=== PATIENT | male | born 1965 | race Caucasian/White ===

== ENCOUNTER 2018-11-30 04:01 | Emergency (ER) | payer OTHER, SELFPAY ==
[2018-11-30 04:03] VITALS: BP 158/109; PULSE 74; RESP 20; TEMP 36.7; O2SAT 96
[2018-11-30] MEDS: Tetracaine 0.5% 4 ML BTL (04:12)
[2018-11-30] MEDS: Fluorescein STRIPS 100/BOX 1 MG (04:12)
--- NOTE | 2018-11-30 04:14 | W.ED.GENAD ---
Discharge Plan Disposition Patient Disposition: HOME Condition: Good Discharge Details Chief Complaint: EyeProblem Clinical Impression: Abrasion, corneal Primary Care Provider: Afshan Roman ED Provider: Burt Apodaca Home Meds and New Rx's Prescriptions: No Action omeprazole 20 MG capsule,delayed release(DR/EC) 20 mg PO DAILY RF: 0 albuterol sulfate [ProAir HFA] 8.5 GM HFA aerosol inhaler 2 puff Inhalation Q4H PRN 30 Days Qty: 2 RF: 11 Discharge Instructions Instructions: Corneal Abrasion (ED) Additional Instructions: Please apply a thin ribbon of the erythromycin ointment to the affected eye 3 times daily. Please follow-up closely at the [facility] if your symptoms persist past 48 hours. If you notice any worsening of your symptoms, or any new symptoms such as vomiting, diarrhea, fever, chills, shortness of breath, chest pain, numbness, weakness, or fainting , please return immediately to the emergency department for reevaluation. Please follow up with your primary care provider as soon as possible for reassessment and reevaluation. As always, it was a pleasure participating in your medical care today. [address] , [place], [place] [id number] Stand Alone Forms: Work Release Referrals: [facility] [OTHER] - Medical Decision Making This is a pleasant 53-year-old male who presents for foreign body sensation in his left eye. 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 He is noticed a continued grittiness in his eyes since then. He does not wear contact lenses. Exam demonstrates a small wood particle noted beneath the upper lid which was removed easily. Small corneal abrasion is also noted over the 1 o'clock position of the eye. No other significant abnormalities on exam. Erythromycin ointment was given. We discussed the importance of close follow-up with the inspector weights and measures. We discussed red flags which to return. I have extensively reviewed the treatment plan and discharge instructions with the patient. I have addressed all patient concerns at this time. The patient was made aware of what symptoms to monitor for that would warrant a return to the emergency department. Discussed the plan with the patient, they demonstrate verbal understanding and agreement with our assessment and plan at this time. HPI General Date/Time Provider Initiated Documentation: 11/30/18 04:04. HPI Narrative: This is a pleasant 53-year-old male with no significant past medical history who presents today for evaluation of irritation in his left eye. 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 Last evening he noticed some irritation and a gritty-like sensation in his left eye. He washed out with copious amounts of water and in the shower however his symptoms persist. He does admit to watering of his eye but denies any blurry vision or headache. He does not wear contact lenses. He denies any recent metalworking, or chips of metal. He has no other complaints at this time. Related Data Home Medications Medication Instructions Recorded Confirmed omeprazole 20 mg PO DAILY tab-cap 09/16/12 11/30/18 albuterol sulfate [Proair Hfa] 2 puff INHALATION Q4H PRN 30 Days 06/22/17 11/30/18 #2 inhaler Previous Rx's Medication Instructions Recorded albuterol sulfate [Proair Hfa] 2 puff INHALATION Q4H PRN 30 Days 06/22/17 #2 inhaler Allergies Allergy/AdvReac Type Severity Reaction Status Date / Time prochlorperazine edisylate AdvReac Severe anxiety Unverified 11/30/18 04:07 [From Compazine] prochlorperazine maleate AdvReac Severe anxiety Unverified 11/30/18 04:07 [From Compazine] General Stated Complaint: EyeProblem DANIELA: 5 Review of Systems Review of Systems All systems reviewed & are unremarkable except as noted in HPI and below PFSH Family History Mother Depression Heart disease Neoplasm Asthma Father Diabetes Stroke Sister Depression Sister No problems noted. Brother No problems noted. Grandfather No problems noted. Grandfather No problems noted. Grandmother Heart disease Grandmother Kidney disease Social History Smoking/Tobacco Use Status: Never Alcohol Intake: never Drug use: Never Substance use type: does not use Do you feel safe in your relationship?: Yes Exam Narrative Exam Narrative: 1.Const: Well-nourished, Well-developed, appearing stated age 2.Eyes: Left eye: EOMI, PERRL, Peripheral vision intact. No nystagmus. No external signs of preseptal cellulitis, no redness around the eye, no proptosis. No hyphema, no signs of trauma around the eye, no periorbital emphysema. Fluorescein exam is positive for corneal abrasion at the 1:00 position, negative Quinton sign. Visual acuity as documented in chart. Eversion of the upper lid demonstrates evidence of a small particle noted on the lid. This was removed with a Q-tip. No evidence of foreign body in the lower lid. 3.ENT: Atraumatic external nose and ears. Moist MM. Neck: Symmetric, trachea midline, No thyromegaly. 4.CVS: +S1/S2, No murmurs or gallops. Peripheral pulses 2+ and equal in all extremities. Brisk capillary refill in all extremities. 5.RESP: Unlabored respiratory effort. Clear to auscultation bilaterally. No wheezes rales or rhonchi 6.GI: Soft, Nontender/Nondistended, No hepatosplenomegaly. No guarding or rebound. 7.MSK: Normocephalic/Atraumatic, Extremities w/o deformity or ttp No cyanosis or clubbing, Normal movement of all extremities 8.Skin: Warm, Dry. No rashes or lesions. 9.Neuro: agricultural adviser II-XII grossly intact. Sensation grossly intact, no focal neurologic deficits. 10.Psych: (AAO) x3. Appropriate mood and affect Course Vital Signs Temperature 36.7 C 11/30/18 04:03 Pulse 74 11/30/18 04:03 Respiratory Rate 20 11/30/18 04:03 Blood Pressure 158/109 H 11/30/18 04:03 Pulse Oximetry 96 11/30/18 04:03 Temperature 36.7 C 11/30/18 04:03 Temperature Source Skin 11/30/18 04:03 Pulse 74 11/30/18 04:03 Respiratory Rate 20 11/30/18 04:03 Respiratory Effort Non-Labored 11/30/18 04:07 Blood Pressure 158/109 H 11/30/18 04:03 Blood Pressure Position Sitting 11/30/18 04:03 Pulse Oximetry 96 11/30/18 04:03 Oxygen Delivery Method Room Air 11/30/18 04:03 Oxygen Flow Rate 0 11/30/18 04:03 Pain Level 5 11/30/18 04:03
[2018-11-30] MEDS: Erythromycin Ophth Oint 3.5 GM TUBE OS (04:17)
== END 2018-11-30 04:20 | disposition home or self-care (01) ==
LOC: ER 04:36
PROVIDERS: Emergency Provider Student in an Organized Health Care Education/Training Program
DX: S05.02XA Injury of conjunctiva and corneal abrasion without foreign body, left eye, initial encounter (principal); T15.92XA Foreign body on external eye, part unspecified, left eye, initial encounter; Y99.0 Civilian activity done for income or pay
CPT/HCPCS: 99283

== ENCOUNTER 2019-09-06 09:19 | Emergency (ER) | payer OTHER, SELFPAY ==
--- NOTE | 2019-09-06 09:23 | ED.GENADUL_ITS ---
Discharge Plan Disposition Patient Disposition: HOME Condition: Improving Discharge Details Chief Complaint: Nausea/Vomit/Diar Clinical Impression: Abdominal pain, vomiting, and diarrhea, Cough Primary Care Provider: Kg Mercado ED Provider: Marisela Phoenix Home Meds and New Rx's Prescriptions: New dicyclomine 20 mg tablet 20 mg PO TID PRN (Reason: abdominal pain) Qty: 10 RF: 0 ondansetron 4 mg tablet,disintegrating 4 mg PO TID PRN (Reason: nausea and vomiting) Qty: 6 RF: 0 Continued omeprazole 20 MG capsule,delayed release(DR/EC) 20 mg PO DAILY RF: 0 albuterol sulfate [ProAir HFA] 8.5 GM HFA aerosol inhaler 2 puff Inhalation Q4H PRN 30 Days Qty: 2 RF: 11 Discharge Instructions Instructions: Acute Nausea and Vomiting (ED), Acute Diarrhea (ED), Acute Cough (ED) Additional Instructions: Take Zofran as needed and directed for nausea and vomiting. Take the Bentyl as needed and directed for abdominal pain and cramping. Drink plenty of fluids and get plenty of rest. Follow a diet of bananas, rice, applesauce, toast, crackers or pretzels over the next few days while diarrhea present. You can advance your diet to regular foods once your bowel movements become more formed. You will be notified of the result of your COVID-19 test drawn today once it is available. Follow-up with your primary care doctor in 1 week. Return to the emergency department with any worsening or new concerning symptoms of fever, persistent vomiting, or worsening abdominal pain. Stand Alone Forms: PENDING COVID-19 TESTING, Work Release Discharge Data Discharge Physician: Marisela Phoenix Medical Decision Making [phone] -- 54-year-old male with history of asthma and GERD presents with cough, vomiting and diarrhea for the past week. BP hypertensive. Afebrile. He appears nontoxic. No focal deficits. His abdomen is soft and diffusely mildly tender. Normal ENT exam. Lungs clear. Suspect most likely GI illness. Differential could also include coronavirus. Do not suspect pneumonia as patient has no complaint of shortness of breath with normal respiratory rate and oxygen saturation. Do not suspect acute abdomen. As pt has headache in setting of vomiting, diarrhea, and mildly tender abdomen, would recommend an IV, IV fluids, meds and labs for further evaluation and treatment. Patient initially hesitant to IV. He is refusing a chest x-ray. He states he is mainly concerned about cost. He also states he would like a work note for the next few days as he has been out for the last week and still does not feel better. He is now agreeable to IV. Will reassess. COVID swab ordered due to GI symptoms in setting of cough and feeling feverish. His headache I suspect is likely due to dehydration as he has no focal deficits. 1145 -- labs reviewed unremarkable. Normal white blood cell count, electrolytes. Patient reassessed -he feels better. Reassessment of abdomen notes it to be soft with very minimal tenderness across lower abdomen. Discussed with patient that we could consider a CT abdomen but he would rather hold on this at this time as he feels better and will plan to return if symptoms worsen. BP still elevated upon discharge, 160/105. He has no complaint of chest pain or headache at this time. He has no focal deficits. He states he has taken lisinopril for hypertension in the past. He is advised to limit sodium intake and follow-up with his PCP regarding his high blood pressure and whether to restart antihypertensives. We will send home with a prescription for Bentyl and Zofran. Encouraged to inc rease fluids. Insert return precautions Medical Records Medical records reviewed: Yes I reviewed the patient's medical records. Lab Data Lab results reviewed: Yes I reviewed the patient's lab results. Labs: Laboratory Tests Range/Units 09/06/19 09/06/19 10:10 10:10 WBC (4.4-10.8) k/cumm 5.95 RBC (4.50-6.00) m/cumm 5.02 Hgb (13.5-17.5) g/dL 16.3 Hct (40.0-50.0) % 45.6 MCV (80-95) fL 90.8 MCH (27.0-33.0) pg 32.5 MCHC (32.0-36.0) g/dL 35.7 RDW (11.8-14.1) % 13.6 Plt Count (130-400) x1000/uL 259 MPV (8.0-11.0) fL 9.1 Immature Gran % % 0.3 Neutrophils % 72.2 Lymphocytes % 18.5 Monocytes % 7.2 Eosinophils % 1.3 Basophils % 0.5 Absolute Neutrophils (1.2-6.7) k/cumm 4.29 Absolute Lymphocytes (1.2-3.4) k/cumm 1.10 L Absolute Monocytes (0.11-0.7) k/cumm 0.43 Absolute Eosinophils (0.0-0.7) k/cumm 0.08 Absolute Basophils (0.0-0.2) k/cumm 0.03 Sodium (136-145) mmol/L 137 Potassium (3.5-5.1) mmol/L 3.9 Chloride (98-107) mmol/L 103 Carbon Dioxide (21.0-32.0) mmol/L 27.9 Anion Gap (3-11) mmol/L 6.1 BUN (7-18) mg/dL 23 H Creatinine (0.70-1.30) mg/dL 0.92 Estimated GFR/1.73 m2 (mL/min/1.73m2) >= 60.00 Glucose (74-106) mg/dL 116 H Calcium (8.5-10.1) mg/dL 8.5 Total Bilirubin (0.2-1.0) mg/dL 0.4 AST (15-37) U/L 32 ALT (16-63) U/L 43 Alkaline Phosphatase (46-116) U/L 45 L Total Protein (6.4-8.2) g/dL 7.1 Albumin (3.4-5.0) g/dL 3.6 Lipase (73-393) U/L 89 HPI General Mode of arrival: ambulatory . Date/Time Provider Initiated Documentation: 09/06/19 09:22 . Limitations to Documentation: no limitations . Information obtained by: patient . HPI Narrative: Patient is a 54-year-old male with a history of asthma and GERD who presents for cough, vomiting and diarrhea for the past week. Patient was sent home from work early last week for vomiting. He states his symptoms started with vomiting which has occurred 1-2 times daily and mainly bile in color. He states shortly after that he started with watery brown diarrhea which has been occurring up to 2 times daily for the past week. He also admits to intermittent crampy abdominal pain which improves after diarrhea and then returns. He states the abdominal pain is currently 4/10. He does also admit to onset of a headache that is located behind both eyes and the top of his head since the vomiting and diarrhea. He states the headache is currently 6/10. He states he has had hot and cold chills but denies any known fever. He states his cough is been occasionally productive of white sputum but he denies any chest pain, shortness of breath, runny nose or sore throat or urinary symptoms. He denies any recent travel, recent antibiotics, recent known sick contacts with coronavirus or any recent Covid 19 testing. Related Data Home Medications Medication Instructions Recorded Confirmed omeprazole 20 mg PO DAILY tab-cap 09/16/12 09/06/19 albuterol sulfate [ProAir HFA] 2 puff INHALATION Q4H PRN 30 Days 06/22/17 09/06/19 #2 inhaler dicyclomine 20 mg PO TID PRN #10 tab 09/06/19 ondansetron 4 mg PO TID PRN #6 tab 09/06/19 Previous Rx's Medication Instructions Recorded albuterol sulfate [ProAir HFA] 2 puff INHALATION Q4H PRN 30 Days 06/22/17 #2 inhaler dicyclomine 20 mg PO TID PRN #10 tab 09/06/19 ondansetron 4 mg PO TID PRN #6 tab 09/06/19 Allergies Allergy/AdvReac Type Severity Reaction Status Date / Time prochlorperazine edisylate AdvReac Severe anxiety Unverified 09/06/19 09:32 [From Compazine] prochlorperazine maleate AdvReac Severe anxiety Unverified 09/06/19 09:32 [From Compazine] General DANIELA: 5 Review of Systems All systems reviewed & are unremarkable except as noted in HPI and below Constitutional Constitutional: Reports as per HPI, Denies fever(s), Reports headache(s), Reports poor appetite and Reports other (hot and cold chills at times) Eyes Eyes: Denies blurry vision ENT Ears, Nose, Mouth, and Throat: Denies dizziness, Reports headache(s), Denies sore throat and Denies throat swelling Cardiovascular Cardiovascular: Denies chest pain and Denies dyspnea Respiratory Respiratory: Reports cough and Denies dyspnea Gastrointestinal Gastrointestinal: Reports abdominal pain, Reports diarrhea and Reports vomiting Genitourinary Genitourinary: Denies hematuria and Denies dysuria Musculoskeletal Musculoskeletal: Denies back pain and Denies numbness Integumentary/Breasts Skin/Breast: Denies lesions and Denies rash Neurologic Neurologic: Denies dizziness, Reports headache(s), Denies localized weakness and Denies numbness Allergic/Immunologic Allergic/Immunologic: Denies throat swelling [facility] Medical History (Updated 09/06/19 @ 11:53 by Marisela Phoenix DO) Asthma (Inactive 09/16/12) GERD (gastroesophageal reflux disease) (Chronic) Hyperlipidemia (Inactive 04/21/11) Surgical History (Updated 09/06/19 @ 10:05 by Marisela Phoenix DO) History of ankle surgery (Acute) Family History Mother Depression Heart disease Neoplasm LUNG Asthma Father Diabetes Stroke Sister Depression Sister No problems noted. Brother No problems noted. Grandfather No problems noted. Grandfather No problems noted. Grandmother Heart disease Grandmother Kidney disease Social History Smoking/Tobacco Use Status: Never Alcohol Intake: current Alcohol Intake frequency: holidays/special occasions only Drug use: Never Substance use type: does not use Do you feel safe at home: Yes Do you feel safe in your relationship?: Yes Exam Const General: cooperative, healthy appearing and no acute distress HENMT Head: normal to inspection Ears: hearing grossly normal bilaterally, external ears normal and TM's normal bilaterally General nose exam: external nose normal Face and sinus: normal facial exam Mouth: oral mucosae normal Throat: posterior oropharynx normal Eyes General: appearance normal, both eyes and all related structures EOM: EOM intact bilaterally Neck Neck: normal visual inspection and No submandibular swelling Lymphatic: no lymphadenopathy noted Chest Chest: normal inspection of the chest and no tenderness Resp Effort & Inspection: normal respiratory effort and able to speak in complete sentences Auscultation: clear to auscultation bilaterally Cardio Rate: regular rate Rhythm: regular rhythm GI Inspection: obesity Palpation: soft, not firm, not rigid and tender (mild diffuse) Auscultation: normal bowel sounds Skin General skin exam: no rashes or lesions noted Neuro General: patient alert, patient awake and patient oriented x3 Cranial Nerves: CN's II-XI intact bilaterally Cognition: normal cognition Speech: speech normal Motor: muscle tone normal throughout and strength 5/5 throughout Sensory Exam: no sensory deficits noted Extrem General: normal to inspection, full ROM, capillary refill normal, no calf tenderness bilaterally and no edema Psych Appearance: grossly normal Mental Status: mental status grossly normal Speech and Movement: speech and movement normal Affect: normal affect
[2019-09-06 09:26] VITALS: BP 165/103; PULSE 80; RESP 16; TEMP 36.6; O2SAT 95
[2019-09-06] MEDS: Normal Saline Flush 10 ML SYR IVP (10:00)
[2019-09-06] MEDS: Ondansetron 4 MG/2 ML VIAL IVP (10:05)
[2019-09-06] MEDS: Normal Saline 1,000 ML 1000 ML IV ×2 (10:05→11:10)
[2019-09-06] MEDS: Ketorolac 30 MG/ML VIAL IVP (10:10)
[2019-09-06 10:29] LABS: Abs Immature Grans 0.02 k/cumm (0.0-0.09); Absolute Basophil Count 0.03 k/cumm (0.0-0.2); Absolute Eosinophil Count 0.08 k/cumm (0.0-0.7); Absolute Monocyte Count 0.43 k/cumm (0.11-0.7); Absolute Neutrophil Count 4.29 k/cumm (1.2-6.7); Basophils % 0.5; Eosinophils % 1.3; HCT 45.6 % (40.0-50.0); HGB 16.3 g/dL (13.5-17.5); Immature Grans % 0.3 %; Lymphocytes % 18.5; Mean Corp. HGB Concentration 35.7 g/dL (32.0-36.0); Mean Corpuscular Hemoglobin 32.5 pg (27.0-33.0); Mean Corpuscular Volume 90.8 fL (80-95); Mean Platelet Volume 9.1 fL (8.0-11.0); Monocytes % 7.2; Neutrophils % 72.2; Platelet Count 259 x1000/uL (130-400); RBC 5.02 m/cumm (4.50-6.00); RBC Distribution Width 13.6 % (11.8-14.1); White Blood Cell Count 5.95 k/cumm (4.4-10.8)
[2019-09-06 10:38] LABS: ALT 43 U/L (16-63); AST 32 U/L (15-37); Albumin 3.6 g/dL (3.4-5.0); Alkaline Phosphatase 45 U/L (46-116); Anion Gap 6.1 mmol/L (3-11); BUN 23 mg/dL (7-18); Bilirubin, Total 0.4 mg/dL (0.2-1.0); CO2 27.9 mmol/L (21.0-32.0); CREATININE 0.92 mg/dL (0.70-1.30); Calcium 8.5 mg/dL (8.5-10.1); Chloride 103 mmol/L (98-107); Glucose 116 mg/dL (74-106); Lipase 89 U/L (73-393); Potassium 3.9 mmol/L (3.5-5.1); Sodium 137 mmol/L (136-145); Total Protein 7.1 g/dL (6.4-8.2)
[2019-09-06 12:10] VITALS: BP 160/105; PULSE 67; RESP 16; TEMP 36.6; O2SAT 98
--- NOTE | 2019-09-07 13:33 | NUR.NOTE ---
patient and RN Jame spoke, patient wanted COvid-19 results. results are still pending and patient aware. Nursing Note:
[2019-09-07 21:04] LABS: COVID-19 RT-PCR UVMMC Result Negative (Negative)
== END 2019-09-06 12:21 | disposition home or self-care (01) ==
PROVIDERS: Emergency Provider Physician Assistant; PCP Family Medicine
DX: R11.2 Nausea with vomiting, unspecified (principal); R19.7 Diarrhea, unspecified; R10.30 Lower abdominal pain, unspecified; R05 Cough; E60 Dietary zinc deficiency; I10 Essential (primary) hypertension
CPT/HCPCS: 36415; 80053; 83690; 96361; 96374; 96375; 99284; U0003; 85025; J1885; J2405

== ENCOUNTER 2019-11-14 01:51 | Outpatient (CLI) | payer OTHER, SELFPAY ==
[2019-11-14 08:09] LABS: Hemoglobin A1C 5.8 % (3.8-5.6)
[2019-11-14 08:36] LABS: Anion Gap 10.9 mmol/L (3-11); BUN 31 mg/dL (7-18); CO2 26.1 mmol/L (21.0-32.0); CREATININE 0.97 mg/dL (0.70-1.30); Calcium 8.8 mg/dL (8.5-10.1); Calculated LDL 116 mg/dL (<100); Chloride 104 mmol/L (98-107); Cholesterol 196 mg/dL (<200); Glucose 121 mg/dL (74-106); HDL Cholesterol 37 mg/dL (40-60); Potassium 3.9 mmol/L (3.5-5.1); Sodium 141 mmol/L (136-145); Triglyceride 215 mg/dL (<150)
== END 2019-11-14 02:11 ==
PROVIDERS: PCP Family Medicine; Visit Provider Family Medicine
DX: I10 Essential (primary) hypertension (principal)
CPT/HCPCS: 36415; 80048; 80061; 83036

== ENCOUNTER 2019-12-25 13:51 | Emergency (ER) | payer OTHER, SELFPAY ==
--- NOTE | 2019-12-25 13:45 | RT.EKG_ITS ---
APPROVED REPORT Exam: Resting ECG Patient Location: E HR:79 bpm ECG Measurements Heart Rate 79 AXIS SC 157 P 22 QRSd 91 QRS 22 QT 374 T 6 QTc 430 Conclusion EKG 14.02 Rate 79, intervals normal, sinus rhythm, no significant ST elevations or depressions, there is a Q wa ve and inverted T wave in lead III, this is unchanged from 12/23/2004
--- NOTE | 2019-12-25 13:53 | W.ED.GENAD ---
Discharge Plan Disposition Patient Disposition: HOME Condition: Stable Discharge Details Clinical Impression: Fatigue, Tingling in extremities Primary Care Provider: Shelton Salinas ED Provider: Caren Ontiveros Home Meds and New Rx's Prescriptions: Continued chlorthalidone 25 mg tablet 25 mg PO DAILY Qty: 90 RF: 3 celecoxib 200 mg capsule 200 mg PO BID Qty: 60 RF: 2 albuterol sulfate [ProAir HFA] 90 mcg/actuation HFA aerosol inhaler 2 puff Inhalation Q4H PRN 30 Days Qty: 2 RF: 11 valsartan 160 mg tablet 160 mg PO DAILY Qty: 90 RF: 3 omeprazole 20 MG capsule,delayed release(DR/EC) 20 mg PO DAILY RF: 0 Discharge Instructions Instructions: Fatigue (ED) Additional Instructions: Continue to encourage water intake. Please take your medications as prescribed. Your potassium slightly low but this was replaced today. Your EKG and laboratory work-up are otherwise unremarkable. I would like for you to follow-up with your primary care in the next 1 to 2 weeks for reevaluation. If you develop chest pain, shortness of breath, increased weakness, headache, visual change or other new/worsening symptoms please seek care urgently once again Referrals: Shelton Salinas [Primary Care Provider] - Discharge Data Discharge Date/Time-TO BE ENTERED AT DEPARTURE: 12/25/19 16:04 Medical Decision Making Patient is a pleasant 54 year old male presenting for evaluation of fatigue that began yesterday. He has had a very busy, stressful week with lots of physical exertion.States that yesterday he had 20 mins of BUE tingling after taking his medications on an empty stomach which is unusual for him. states that he has felt poorly historically when he has taken his meds on an empty stomach. He states that he has not had recurrence of this. He comes in today as his was concerned for AMI with his fatigue. He states that he was up and puttering around the yard with no change in his symptoms. He denies SOB, CP, N/V, lightheadedness, presyncope, [place], visual chnages, focal weakness, palpitations. Has also been asympatomic when exerting himself. Was digging posts throughout the week. He states that he is feeling better today but continues to be slightly fatigued. On exam, patient is overweight. No acute distress, appears nontoxic. Lungs clear, normal cardiac exam. ECG reviewed by Dr. Apodaca. Patient in a NSR with no evience of acute ischemic changes. Labs reviewed. Signficant for mild hypokalemia at 3.3, this was replenished orally. Troponin <0.05. Discussed findings with his patient and his . He was adamant on his initial presentation about not wanting to wait 4 hours. I do not see reason for repeat troponin at this time as the patient has been feeling improved, has been asympatomic since being here and has had fatigue since yesterday. Patietn is able to identify the source of his fatigue, he feels that this is normal and expected based on his exertion over the week. Patient was given return precautions. ADvised close f/u with PCP. All of his questions and concerns were addressed, he is in agreement with this plan. HPI General Mode of arrival: ambulatory. Date/Time Provider Initiated Documentation: 12/25/19 13:53. Limitations to Documentation: no limitations. Information obtained by: patient, RN/MD (Dr. Mora called prior to patient's arrival) and RN notes reviewed. HPI Narrative: Patient is a pleasant 54-year-old gentleman presents today with chief complaint of fatigue. He reports that yesterday morning he awoke and noted tingling in his bilateral upper extremities and fatigue after taking his meds without any food. He reports that typically he takes his medications with food and can feel poorly after he takes them on empty stomach. States that after eating, the tingling seemed to subside and he was somewhat fatigued throughout the course the day although this too did improve to some degree. Reports that today he is only feeling fatigued. States that throughout the course the week this week, he has had very physically demanding jobs both around the house as well as at work. He believes the fatigue is associated with this. His is concerned for potential cardiac source of his tingling and fatigue, contacted primary care provider on-call, who advised to come in for evaluation. Patient denies exertional symptoms. He denies CP, SOB, lightheadedness, Has hx of HTN and obesity. mno PHM of CAD, no pertinent family history. Related Data Home Medications Medication Instructions Recorded Confirmed omeprazole 20 mg PO DAILY tab-cap 09/16/12 12/25/19 celecoxib 200 mg capsule 200 mg PO BID #60 cap 09/16/19 12/25/19 albuterol sulfate 90 mcg/actuation 2 puff INHALATION Q4H PRN 30 Days 10/19/19 12/25/19 aerosol inhaler #2 inhaler valsartan 160 mg tablet 160 mg PO DAILY #90 tab 11/16/19 12/25/19 chlorthalidone 25 mg tablet 25 mg PO DAILY #90 tab 12/14/19 12/25/19 Previous Rx's Medication Instructions Recorded celecoxib 200 mg capsule 200 mg PO BID #60 cap 09/16/19 albuterol sulfate 90 mcg/actuation 2 puff INHALATION Q4H PRN 30 Days 10/19/19 aerosol inhaler #2 inhaler valsartan 160 mg tablet 160 mg PO DAILY #90 tab 11/16/19 chlorthalidone 25 mg tablet 25 mg PO DAILY #90 tab 12/14/19 Allergies Allergy/AdvReac Type Severity Reaction Status Date / Time prochlorperazine edisylate AdvReac Severe anxiety Unverified 12/25/19 14:25 [From Compazine] prochlorperazine maleate AdvReac Severe anxiety Unverified 12/25/19 14:25 [From Compazine] General DANIELA: 3 Review of Systems Constitutional Constitutional: Reports as per HPI, Denies chills, Reports fatigue, Denies fever(s), Denies headache(s), Denies lethargy and Denies poor appetite Eyes Eyes: Denies change in vision ENT Ears, Nose, Mouth, and Throat: Denies dizziness and Denies headache(s) Cardiovascular Cardiovascular: Reports as per HPI, Denies chest pain, Denies chest pain at rest, Denies chest pain with activity, Denies edema, Denies leg edema, Denies lightheadedness, Denies radiating jaw, neck or arm pain, Denies palpitations, Denies dyspnea, Denies dyspnea on exertion and Denies paroxysmal nocturnal dyspnea Respiratory Respiratory: Reports as per HPI, Denies chest congestion, Denies cough, Denies pain on inspiration, Denies pain with cough, Denies dyspnea, Denies dyspnea on exertion and Denies wheezing Gastrointestinal Gastrointestinal: Reports as per HPI, Denies abdominal pain, Denies diarrhea, Denies nausea and Denies vomiting Genitourinary Genitourinary: Denies system reviewed and no additional complaints, except as documented (denies change in urinary habits) Musculoskeletal Musculoskeletal: Reports as per HPI, Denies back pain and Reports tingling (last about 20 min to BUE yesterday, none today) Integumentary/Breasts Skin/Breast: Reports as per HPI and Denies rash Neurologic Neurologic: Reports as per HPI, Denies dizziness, Denies headache(s) and Reports tingling (last about 20 min to BUE yesterday, none today) Endocrine Endocrine: Reports fatigue and Denies palpitations Allergic/Immunologic Allergic/Immunologic: Denies wheezing [facility] Medical History (Updated 12/25/19 @ 15:51 by NGUYEN Mcduffie) Abdominal pain, vomiting, and diarrhea Asthma (09/16/12) Cough GERD (gastroesophageal reflux disease) Hyperlipidemia (04/21/11) Surgical History History of ankle surgery Family History Mother Depression Heart disease Neoplasm LUNG Asthma Father Diabetes Stroke Sister Depression Sister No problems noted. Brother No problems noted. Grandfather No problems noted. Grandfather No problems noted. Grandmother Heart disease Grandmother Kidney disease Social History Smoking/Tobacco Use Status: Never Alcohol Intake: current Alcohol Intake frequency: holidays/special occasions only Drug use: Never Substance use type: does not use Do you feel safe at home: Yes Do you feel safe in your relationship?: Yes Exam Const General: cooperative, healthy appearing, comfortable, no acute distress and well developed Nutritional Appearance: well nourished and overweight Orientation: alert, awake and oriented x3 HENMT Head: normal to inspection Ears: hearing grossly normal bilaterally Mouth: moist mucous membranes Chest Chest: normal inspection of the chest, normal palpation of entire chest wall and no crepitus Resp Effort & Inspection: normal respiratory effort, able to speak in complete sentences and no respiratory distress Auscultation: clear to auscultation bilaterally, no rales, no rhonchi and no wheezes Cardio Rate: regular rate Rhythm: regular rhythm Heart Sounds: S1 normal and S2 normal GI Inspection: normal to inspection, no edema and non-distended Palpation: soft, no hepatosplenomegaly, not firm, no guarding, not rigid and nontender Auscultation: normal bowel sounds Back/Spine/Pelvis Back: no CVA tenderness Thoracic/Lumbar Spine: thoracic and lumbar spine normal to inspection Skin General skin exam: no rashes or lesions noted Trauma: no lacerations or abrasions Neuro General: patient alert, patient awake and patient oriented x3 Cognition: normal cognition Speech: speech normal Gait: normal gait Extrem General: normal to inspection, capillary refill normal, no pedal edema, no calf tenderness and normal gait Psych Appearance: grossly normal and well kempt Mental Status: mental status grossly normal Speech and Movement: speech and movement normal
[2019-12-25 14:01] VITALS: BP 130/90; PULSE 79; PULSE 81; RESP 25
[2019-12-25 14:15] VITALS: BP 127/81; PULSE 78; RESP 14; TEMP 37; O2SAT 94
[2019-12-25 14:16] VITALS: BP 127/81; PULSE 76; PULSE 81; RESP 21; O2SAT 94
[2019-12-25 14:24] LABS: Abs Immature Grans 0.03 10^3/uL (0.0-0.06); Absolute Basophil Count 0.04 10^3/uL (0.0-0.2); Absolute Eosinophil Count 0.07 10^3/uL (0.0-0.7); Absolute Lymphocyte Count 1.49 10^3/uL (1.2-3.4); Absolute Neutrophil Count 5.22 10^3/uL (1.2-6.7); Basophils % 0.5; Eosinophils % 0.9; HGB 17.3 g/dL (13.5-17.5); Immature Grans % 0.4; Lymphocytes % 19.7; MCH 32.8 pg (27.0-33.0); MCV 90.9 fL (80-95); MPV 8.9 fL (8.0-11.0); Monocytes % 9.3; Neutrophils % 69.2; Nucleated RBC 0 %; Platelet Count 253 10^3/uL (130-400); RBC 5.28 10^6/uL (4.36-5.78); RDW 12.2 % (11.8-14.1); RDW-SD 40.1 fL; WBC 7.55 10^3/uL (4.4-10.8)
[2019-12-25 14:31] VITALS: BP 133/82; PULSE 74; PULSE 79; RESP 17; O2SAT 94
[2019-12-25 14:39] LABS: INR 1.1 (0.9-1.1); PTT Activated 23.9 sec (21.0-31.4)
[2019-12-25 14:40] LABS: ALT 35 U/L (16-63); AST 26 U/L (15-37); Albumin 3.7 g/dL (3.4-5.0); Alkaline Phosphatase 51 U/L (46-116); Anion Gap 8.8 mmol/L (3-11); BUN 28 mg/dL (7-18); Bilirubin, Total 0.5 mg/dL (0.2-1.0); CO2 27.2 mmol/L (21.0-32.0); CREATININE 1.02 mg/dL (0.70-1.30); Chloride 100 mmol/L (98-107); Glucose 96 mg/dL (74-106); Magnesium 1.8 mg/dL (1.8-2.4); Potassium 3.3 mmol/L (3.5-5.1); Sodium 136 mmol/L (136-145); Total Protein 7.4 g/dL (6.4-8.2)
[2019-12-25 14:41] LABS: Troponin I < 0.05 ng/mL (<0.06)
[2019-12-25 14:46] VITALS: BP 116/80; PULSE 72; PULSE 82; RESP 17; O2SAT 92
--- NOTE | 2019-12-25 14:58 | DI.RAD_ITS ---
EXAM: XR CHEST 2V PA LATERAL CLINICAL HISTORY: CP TECHNIQUE: 2D digital imaging was performed. COMPARISON: CR CHEST 2 VIEWS PA,LAT from 07/07/2016 FINDINGS: The heart is not enlarged. The lungs are clear and well expanded. No pleural effusion seen. Mediastin al contours appear intact. IMPRESSION: Normal chest RADIATION DOSE DELIVERED: Total DLP
[2019-12-25] MEDS: Potassium Chloride 20 MEQ TABCR PO (15:45)
[2019-12-25 15:54] VITALS: BP 135/96; PULSE 73; RESP 18; O2SAT 96
== END 2019-12-25 16:04 | disposition home or self-care (01) ==
PROVIDERS: Emergency Provider Physician Assistant; PCP Family Medicine
DX: R53.83 Other fatigue (principal); R20.2 Paresthesia of skin; E87.6 Hypokalemia
CPT/HCPCS: 36415; 80053; 93005; 99285; 71046; 83735; 84484; 85025; 85610; 85730; 93010

== ENCOUNTER 2020-06-09 07:34 | Emergency (ER) | payer BC, SELFPAY ==
[2020-06-09 07:42] VITALS: BP 127/91; PULSE 77; RESP 18; TEMP 36.8; O2SAT 95
--- NOTE | 2020-06-09 08:00 | DI.RAD_ITS ---
EXAM: XR KNEE LT 4V+ CLINICAL HISTORY: fall/twist injury. TECHNIQUE: 2D digital imaging was performed. COMPARISON: No exams were available for comparison FINDINGS: BONES: No acute fracture is present. There are well corticated bony fragment seen at the superior l ateral aspect of the patella. Differential considerations include a multipartite patella versus old non united patellar fracture. No bony destructive lesion is seen. JOINTS: The knee is normally aligned. No joint effusion is seen. SOFT TISSUE: Normal. IMPRESSION: 1. No acute fracture or dislocation. 2. 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 DATA REPOSITORY: RADIATION DOSE DELIVERED:
--- NOTE | 2020-06-09 08:04 | ED.GENADUL_ITS ---
Discharge Plan Disposition Patient Disposition: HOME Condition: Stable Discharge Details Clinical Impression: Injury, knee Primary Care Provider: Shelton Salinas ED Provider: Nickolas Potter Home Meds and New Rx's Prescriptions: Continued chlorthalidone 25 mg tablet 25 mg PO DAILY Qty: 90 RF: 3 albuterol sulfate [ProAir HFA] 90 mcg/actuation HFA aerosol inhaler 2 puff Inhalation Q4H PRN 30 Days Qty: 2 RF: 11 omeprazole 20 MG capsule,delayed release(DR/EC) 20 mg PO DAILY RF: 0 valsartan 80 mg tablet 80 mg PO DAILY Qty: 30 RF: 11 sildenafil 50 mg tablet 50 mg PO DAILY PRN (Reason: sexual activity) Qty: 30 RF: 5 celecoxib 200 mg capsule 200 mg PO BID Qty: 60 RF: 2 Discharge Instructions Instructions: Knee Pain (ED) Additional Instructions: Your x-ray reveals an incompletely healed fracture of unknown age in the lateral aspect of the patella. CT imaging offered but declined, I believe this to be a perfectly reasonable plan. Wear long leg immobilizer and use crutches until evaluation with orthopedics, no weightbearing until then. As we discussed outpatient MRI will likely be indicated for further evaluation of your injury. Rest, elevate, cool compresses every 2 hours for 20 minutes. [id number] Tylenol and/or Motrin as directed for discomfort. I have placed you on the orthopedic list, call their office on Thursday to discuss outpatient reevaluation. Stand Alone Forms: Work Release Referrals: Kobe Hahn MD [ [facility] STAFF PHYSICIAN] - Medical Decision Making 55-year-old gentleman presents with left knee injury-pain that began last night when he slipped on ice and a twisting mechanism and then fell downwards. He does not believe that he landed directly on his knee. Denies any other injuries. Denies numbness, tingling, weakness. Patient does have an antalgic gait, mild abrasion over the anterior aspect however the majority of his discomfort is over the lateral aspect of the knee especially with varus and valgus stress. There does not appear to be any obvious ligamentous instability. Neuro, vascular, tendon intact. Will obtain x-ray and reassess. X-ray read by radiology as incompletely healed fracture of unknown age in the lateral aspect of the patella, seen best on the sunrise view. Discussed x-ray findings with patient. Clinically I did not expect an acute patella fracture. He initially told me he had no previous knee injuries but the n later tells me that he has fallen quite hard on his knees in the past couple of times that have caused him to hobble around for at least a month or so. I do question if the findings on the x-ray are secondary to a previous injury. Discussed options at this time. I am still concerned about a soft tissue or ligamentous injury given the mechanism and his clinical findings. He was offered a CT at this time for further evaluation of the potential acute on chronic fracture but he declines. He states from a financial standpoint he does not want to have a CT today and then likely outpatient MRI through orthopedics. He is comfortable being discharged in his current condition and would follow-up with orthopedics for more definitive care. He is neuro, vascular, tendon intact, I believe this to be a perfectly reasonable plan. He was given a long- leg knee immobilizer and crutches, instructed no weightbearing until reevaluation with orthopedics. In the meantime he will rest, elevate, cool compresses every 2 hours for 20 minutes. [id number]-pak-hyeefns Tylenol and/or Motrin as directed for discomfort. I have placed him on the orthopedic list and have instructed that he contact their office on Thursday to help expedite outpatient care. He was encouraged to return to the ER for new or worsening symptoms. Medical Records Medical records reviewed: Yes I reviewed the patient's medical records. Imaging Data Radiologic Study: Attestation: I personally reviewed and interpreted this imaging study as follows: Imaging: X-Ray Radiologist's impression: Left knee 4 view x-ray read by radiology has incompletely healed fracture of unknown age in the lateral aspect of the patella. Best seen on the sunrise view. HPI General Mode of arrival: ambulatory . Date/Time Provider Initiated Documentation: 06/09/20 07:45 . Limitations to Documentation: no limitations . Information obtained by: patient . HPI Narrative: This is a 55-year-old gentleman, past medical history of migraines, hypertension, asthma, GERD, who presents to the ER for evaluation of a left knee injury. He states that last night he slipped on ice, his lower leg went outwards, upper leg went inward, he states he felt pain burning in nature and a pop along the medial aspect of his knee. He denies any other injury. He denies numbness, tingling, weakness. He states that his pain is minimal at rest but moderate-severe with movement, especially trying to bear weight. He denies previous knee injury. Has not taken any medication for his symptoms. Related Data Home Medications Medication Instructions Recorded Confirmed omeprazole 20 mg PO DAILY tab-cap 09/16/12 06/09/20 albuterol sulfate 90 mcg/actuation 2 puff INHALATION Q4H PRN 30 Days 10/19/19 06/09/20 aerosol inhaler #2 inhaler chlorthalidone 25 mg tablet 25 mg PO DAILY #90 tab 12/14/19 06/09/20 valsartan 80 mg tablet 80 mg PO DAILY #30 tab 01/02/20 06/09/20 sildenafil 50 mg tablet 50 mg PO DAILY PRN #30 tab 02/02/20 06/09/20 celecoxib 200 mg capsule 200 mg PO BID #60 cap 04/17/20 06/09/20 Previous Rx's Medication Instructions Recorded albuterol sulfate 90 mcg/actuation 2 puff INHALATION Q4H PRN 30 Days 10/19/19 aerosol inhaler #2 inhaler chlorthalidone 25 mg tablet 25 mg PO DAILY #90 tab 12/14/19 valsartan 80 mg tablet 80 mg PO DAILY #30 tab 01/02/20 sildenafil 50 mg tablet 50 mg PO DAILY PRN #30 tab 02/02/20 celecoxib 200 mg capsule 200 mg PO BID #60 cap 04/17/20 Allergies Allergy/AdvReac Type Severity Reaction Status Date / Time prochlorperazine edisylate AdvReac Severe anxiety Unverified 06/09/20 07:46 [From Compazine] prochlorperazine maleate AdvReac Severe anxiety Unverified 06/09/20 07:46 [From Compazine] General Stated Complaint: Orthopedic DANIELA: 3 Review of Systems Constitutional Constitutional: Reports headache(s) (Migraines, chronic) and Denies weakness ENT Ears, Nose, Mouth, and Throat: Denies neck pain Musculoskeletal Musculoskeletal: Denies deformity, Reports arthralgias, Denies neck pain, Denies numbness, Reports stiffness and Denies tingling Integumentary/Breasts Skin/Breast: Denies erythema Neurologic Neurologic: Denies numbness, Denies tingling and Denies weakness [facility] Medical History (Updated 06/09/20 @ 09:35 by NGUYEN Rinaldi) Abdominal pain, vomiting, and diarrhea Asthma (09/16/12) Cough GERD (gastroesophageal reflux disease) Hyperlipidemia (04/21/11) Surgical History History of ankle surgery Family History Mother Depression Heart disease Neoplasm LUNG Asthma Father Diabetes Stroke Sister Depression Sister No problems noted. Brother No problems noted. Grandfather No problems noted. Grandfather No problems noted. Grandmother Heart disease Grandmother Kidney disease Social History Smoking/Tobacco Use Status: Never Smoking risk assessment performed?: Yes Alcohol Intake: current Alcohol Intake frequency: holidays/special occasions only Drug use: Never Substance use type: does not use Do you feel safe at home: Yes Do you feel safe in your relationship?: Yes Exam Const General: cooperative, healthy appearing, comfortable and no acute distress Orientation: alert and awake HENPA Head: normal to inspection, normocephalic and atraumatic Eyes General: appearance normal, both eyes and all related structures Conjunctivae: conjunctivae normal Sclera: sclerae normal Neck Neck: normal visual inspection, full ROM, trachea midline and supple Resp Effort & Inspection: normal respiratory effort and able to speak in complete sentences Cardio Rate: regular rate Rhythm: regular rhythm Skin General skin exam: no rashes or lesions noted Neuro General: patient alert, patient awake, moves all extremities and no focal motor deficits Cognition: normal cognition Speech: speech normal Gait: antalgic Motor: muscle tone normal throughout Sensory Exam: no sensory deficits noted Extrem Left lower extremity: full ROM, normal capillary refill, hip/thigh Details: normal to inspection and normal ROM; no tenderness and no swelling, knee Details: abnormal to inspection, tenderness, swelling, normal ROM, knee ligament exam normal Details: anterior drawer test normal and knee ligament exam abnormal Details: valgus stress test Details: pain noted and varus stress test Details: pain noted; no deformity and no unusual warmth, lower leg Details: normal to inspection and no edema; no tenderness, no localized swelling and no deformity, ankle Details: normal to inspection, no edema and normal ROM; no tenderness and no swelling and foot Details: normal capillary refill, normal to inspection and toes with normal ROM; no tenderness Knee images: 1. Abrasion 2. Diffuse discomfort to palpation but without any obvious bony point tenderness. Tenderness is greatest over the lateral aspect of the knee, not over the patella. Psych Appearance: grossly normal Mental Status: mental status grossly normal Course Vital Signs Vital signs: Vital Signs Temperature 36.8 C 06/09/20 07:42 Pulse 77 06/09/20 07:42 Respiratory Rate 18 06/09/20 07:42 Blood Pressure 127/91 H 06/09/20 07:42 Pulse Oximetry 95 06/09/20 07:42 Temperature 36.8 C 06/09/20 07:42 Temperature Source Temporal Artery Scan 06/09/20 07:42 Pulse 77 06/09/20 07:42 Respiratory Rate 18 06/09/20 07:42 Respiratory Effort Non-Labored 06/09/20 07:50 Blood Pressure 127/91 H 06/09/20 07:42 Blood Pressure Position Sitting 06/09/20 07:42 Pulse Oximetry 95 06/09/20 07:42 Oxygen Delivery Method Room Air 06/09/20 07:42 Oxygen Flow Rate 0 06/09/20 07:42 Pain Level 8 06/09/20 07:42
--- NOTE | 2020-06-09 09:01 | DI.VRAD_ITS ---
PROCEDURE INFORMATION: Exam: XR Left Knee Exam date and time: 06/09/2020 8:08 AM Age: 55 years old Clinical indication: Injury or trauma; Fall; Sprain or strain; Patella or knee; Left TECHNIQUE: Imaging protocol: XR Left knee. Views: 4 or more views. COMPARISON: No relevant prior studies available. FINDINGS: Bones/joints: Incompletely healed fracture of unknown age in the lateral aspect of the patella. Seen best on the sunrise view. Soft tissues: Soft tissue swelling of the knee IMPRESSION: Incompletely healed fracture of unknown age in the lateral aspect of the patella. Seen best on the sunrise view. Dictated and Authenticated by: Ai Jefferson MD. Ordering:AUGUSTO Olmos MD
[2020-06-09 09:44] VITALS: BP 127/93; PULSE 74; RESP 18; TEMP 36.8; O2SAT 94
== END 2020-06-09 09:54 | disposition home or self-care (01) ==
PROVIDERS: Emergency Provider Physician Assistant; PCP Family Medicine
DX: S89.82XA Other specified injuries of left lower leg, initial encounter (principal); W00.0XXA Fall on same level due to ice and snow, initial encounter
CPT/HCPCS: 99283; 73564

== ENCOUNTER → 2020-07-19 00:52 | Outpatient (CLI) | payer BC, SELFPAY ==
--- NOTE | 2020-07-19 06:45 | DI.MRI_ITS ---
EXAM: MR LOWER JOINT LT WO CLINICAL HISTORY: KNEE PAIN, INTERNAL DERANGEMENT,MCL SPRAIN,S83.412A,M23.92. TECHNIQUE: Multiplanar multisequence MRI was performed. COMPARISON: CR,XR XR KNEE LT 4V+ from 06/09/2020 FINDINGS: The recent plain films showed question a bipartite patella versus incompletely healed fracture. By M RI, there is no high signal within this area, consistent with a bipartite patella. The patellar reti nacula appear intact. There is a minimal joint effusion. There is edema around the medial collatera l ligament greater near the femoral attachment. The lateral collateral ligament complex and cruciate ligaments as well as extensor mechanism appear intact. There is minimal high signal within the medi al meniscus but no focal tear. No cartilage defects are seen. There is a small subchondral cyst in the medial tibial spine. There marrow signal is otherwise unremarkable. IMPRESSION: Medial collateral ligament sprain at the femoral attachment. Degenerative signal changes in the medi al meniscus. Bipartite patella. DATA REPOSITORY:
== END ==
PROVIDERS: PCP Family Medicine; Visit Provider Student in an Organized Health Care Education/Training Program
DX: S83.412A Sprain of medial collateral ligament of left knee, initial encounter (principal); Q74.1 Congenital malformation of knee; M23.92 Unspecified internal derangement of left knee
CPT/HCPCS: 73721

== ENCOUNTER → 2020-08-27 11:19 | Outpatient (CLI) | payer BC, SELFPAY ==
--- NOTE | 2020-08-27 11:30 | DI.RAD_ITS ---
Exam(s) XR SHOULDER RT COMPLETE 2+V EXAM: XR SHOULDER RT COMPLETE 2+V CLINICAL HISTORY: Right shoulder trauma/fall from M25.511 PAIN RT SHOULDER. TECHNIQUE: 2D digital imaging was performed. COMPARISON: No exams were available for comparison FINDINGS: No evidence of fracture or dislocation glenohumeral joint. No soft tissue calcifications in the suba cromial space. Calcifications are noted in the acromioclavicular joint superior aspect which are int racapsular and are not causing impingement upon the subacromial space. Small degenerative cysts are noted in the lateral aspect of the humeral head greater tuberosity region. IMPRESSION: DATA REPOSITORY: RADIATION DOSE DELIVERED:
== END ==
PROVIDERS: PCP Family Medicine; Visit Provider Nurse Practitioner Family
DX: M25.511 Pain in right shoulder (principal); M85.611 Other cyst of bone, right shoulder
CPT/HCPCS: 73030

== ENCOUNTER 2020-09-15 11:05 | Emergency (ER) | payer BC, SELFPAY ==
--- NOTE | 2020-09-15 11:00 | RT.EKG_ITS ---
APPROVED REPORT Exam: Resting ECG Reason for Exam: chest tightness Patient Location: E HR:78 bpm ECG Measurements Heart Rate 78 AXIS MD 167 P 2 QRSd 90 QRS 24 QT 382 T 8 QTc 435 Conclusion Sinus rhythm...normal P axis, V-rate 60- 99 No STEMI. I have reviewed and interpreted ECG and agree with software generated interpretation.
[2020-09-15 11:17] VITALS: BP 127/85; PULSE 82; RESP 22; TEMP 37.2; O2SAT 92
--- NOTE | 2020-09-15 11:17 | ED.GENADUL_ITS ---
Discharge Plan Disposition Patient Disposition: HOME Condition: Stable Discharge Details Clinical Impression: Acute respiratory infection, Asthma Primary Care Provider: Annalisa Connor ED Provider: Caren Ontiveros Home Meds and New Rx's Prescriptions: Continued chlorthalidone 25 mg tablet 25 mg PO DAILY Qty: 90 RF: 3 albuterol sulfate [ProAir HFA] 90 mcg/actuation HFA aerosol inhaler 2 puff Inhalation Q4H PRN 30 Days Qty: 2 RF: 11 omeprazole 20 MG capsule,delayed release(DR/EC) 20 mg PO DAILY RF: 0 valsartan 80 mg tablet 80 mg PO DAILY Qty: 30 RF: 11 sildenafil 50 mg tablet 50 mg PO DAILY PRN (Reason: sexual activity) Qty: 30 RF: 5 celecoxib 200 mg capsule 200 mg PO BID Qty: 60 RF: 2 Discharge Instructions Instructions: Asthma (ED), COVID-19 (Coronavirus Disease 2019) (ED), Instructions for Self Monitoring Oxygen Saturation Additional Instructions: You did have some wheezing noted on exam today, I am concerned this respiratory infection may be potentially worsening your asthma and causing exacerbation. Please continue with albuterol as previously prescribed. If symptoms worsen, as discussed, you may always return for the nebulizer and continued management as we discussed. Your COVID-19 testing is pending. Please quarantine until these results are returned. Please monitor your oxygen saturation. If your oxygen drops below 90%, please come back to the emergency department. If you develop difficulty breathing, increased shortness of breath, inability stay hydrated or other new/worsening symptoms please return immediately once again. You may use Tylenol and/or ibuprofen to help with discomfort or fevers. Encourage water intake. Please follow-up with primary care this week for reevaluation. Referrals: Annalisa Connor NP [Primary Care Provider] - Discharge Data Discharge Date/Time-TO BE ENTERED AT DEPARTURE: 09/15/20 11:45 Medical Decision Making Patient is a pleasant 55 year old male presenting today with c/c of respiratory illness. States that grad daughter has similar symptoms that she is currently pending COVID testing for. He began having illness the day after she began having symptoms. States that he has had cough, congestion and SOB. Reports he has asthma and has been wheezing. Has used his inhaler. reports that last night he was haivng chills and rigors. Has not tatken any antipyretics. Denies GI upset. On exam, patient appears nontoxic. Normal ENT exam. Has scattered wheezing. VS WNL, O2 97% when i am in with the patient. Especially with recent exposure, I am concerned for possible COVID 19. Patient declines cxr. He declines nebulizer. He dot not want further treatment, he reports he just wants COVID testing. With his hx of asthma, I am concerned about this worsening. Discussed my concern with him. Will order COVID testing. Will also send him home with pulse oximeter. Encouraged use of inhaler. Discussed OTC and home remedies that may help with symptomatic management. He will quarantine at home. Strict return precautions were given. He will call PCP Thursday to schedule f/u appointment. All quesitons and concerns were addressed, he is in agreement with this plan. HPI General Mode of arrival: ambulatory . Date/Time Provider Initiated Documentation: 09/15/20 11:10 . Limitations to Documentation: no limitations . Information obtained by: patient and RN notes reviewed . History of Present Illness 55 year old M presents to the emergency department with the chief complaint of general unwell, cough, congestion, SOB, described as moderate, with intensity rated at 1 (denies any pain). and is localized to the head, face and chest. Patient reports no radiation. Patient started experiencing this day(s) and it has been constant. No relieving factors improve symptom(s), No exacerbating factors reported . Patient notes fever/chills, malaise and shortness of breath; denies chest pain and nausea/vomiting. Patient did receive the following treatments prior to arrival, none Related Data Home Medications Medication Instructions Recorded Confirmed omeprazole 20 mg PO DAILY tab-cap 09/16/12 09/15/20 albuterol sulfate 90 mcg/actuation 2 puff INHALATION Q4H PRN 30 Days 10/19/19 09/15/20 aerosol inhaler #2 inhaler chlorthalidone 25 mg tablet 25 mg PO DAILY #90 tab 12/14/19 09/15/20 valsartan 80 mg tablet 80 mg PO DAILY #30 tab 01/02/20 09/15/20 sildenafil 50 mg tablet 50 mg PO DAILY PRN #30 tab 02/02/20 09/15/20 celecoxib 200 mg capsule 200 mg PO BID #60 cap 07/17/20 09/15/20 Previous Rx's Medication Instructions Recorded albuterol sulfate 90 mcg/actuation 2 puff INHALATION Q4H PRN 30 Days 10/19/19 aerosol inhaler #2 inhaler chlorthalidone 25 mg tablet 25 mg PO DAILY #90 tab 12/14/19 valsartan 80 mg tablet 80 mg PO DAILY #30 tab 01/02/20 sildenafil 50 mg tablet 50 mg PO DAILY PRN #30 tab 02/02/20 celecoxib 200 mg capsule 200 mg PO BID #60 cap 07/17/20 Allergies Allergy/AdvReac Type Severity Reaction Status Date / Time prochlorperazine edisylate AdvReac Severe anxiety Verified 09/15/20 11:19 [From Compazine] prochlorperazine maleate AdvReac Severe anxiety Verified 09/15/20 11:19 [From Compazine] General DANIELA: 3 Review of Systems Constitutional Constitutional: Reports as per HPI, Reports chills, Reports fatigue, Reports fever(s), Denies headache(s) and Reports malaise Eyes Eyes: Reports as per HPI, Denies eye discharge and Denies irritation ENT Ears, Nose, Mouth, and Throat: Reports as per HPI and Denies headache(s) Cardiovascular Cardiovascular: Reports as per HPI, Denies chest pain and Reports dyspnea Respiratory Respiratory: Reports as per HPI, Reports dyspnea and Reports wheezing (statets that he has asthma and feels this is worse) Gastrointestinal Gastrointestinal: Reports as per HPI, Denies abdominal pain, Denies change in bowel habits, Denies nausea and Denies vomiting Integumentary/Breasts Skin/Breast: Reports as per HPI and Denies rash Neurologic Neurologic: Reports as per HPI and Denies headache(s) Endocrine Endocrine: Reports fatigue Allergic/Immunologic Allergic/Immunologic: Reports wheezing (statets that he has asthma and feels this is worse) FOR[facility]LY [facility], [facility] Medical History Abdominal pain, vomiting, and diarrhea Asthma (09/16/12) Cough GERD (gastroesophageal reflux disease) Hyperlipidemia (04/21/11) Internal derangement of left knee Surgical History History of ankle surgery Family History Mother Depression Heart disease Neoplasm LUNG Asthma Father Diabetes Stroke Sister Depression Sister No problems noted. Brother No problems noted. Grandfather No problems noted. Grandfather No problems noted. Grandmother Heart disease Grandmother Kidney disease Social History Smoking/Tobacco Use Status: Never Smoking risk assessment performed?: Yes Alcohol Intake: current Alcohol Intake frequency: holidays/special occasions only Drug use: Never Substance use type: does not use Do you feel safe at home: Yes Do you feel safe in your relationship?: Yes Exam Const General: cooperative, healthy appearing, comfortable, no acute distress, well developed and well groomed Nutritional Appearance: average body habitus and well nourished Orientation: alert and awake [facility] Head: normal to inspection, normocephalic and atraumatic Ears: hearing grossly normal bilaterally, external ears normal and TM's normal bilaterally General nose exam: external nose normal and nares normal Face and sinus: normal facial exam, sinuses nontender and face symmetric Mouth: oral mucosae normal, lip normal, tongue normal, oropharynx normal and moist mucous membranes Teeth and gingiva: dentition normal Throat: posterior oropharynx normal, tonsils normal and uvula midline Eyes General: appearance normal, both eyes and all related structures Neck Neck: normal visual inspection, full ROM, no lymphadenopathy and no meningeal signs Resp Effort & Inspection: normal respiratory effort, able to speak in complete sen tences and no respiratory distress Auscultation: no rales, no rhonchi and wheezes (scattered faint expiratory wheezes, moving air well ) Cardio Rate: regular rate Rhythm: regular rhythm Heart Sounds: S1 normal and S2 normal Skin General skin exam: no rashes or lesions noted Neuro General: patient alert and patient awake Cognition: normal cognition Speech: speech normal Gait: normal gait Psych Appearance: grossly normal and well kempt Mental Status: mental status grossly normal Speech and Movement: speech and movement normal
[2020-09-16 11:05] LABS: COVID-19 RT-PCR UVMMC Result Negative (Negative)
--- NOTE | 2020-09-16 17:12 | NUR.NOTE ---
Nursing Note: Pt contacted on cell phone number on file and notified of negative covid results.
== END 2020-09-15 11:45 | disposition home or self-care (01) ==
LOC: ER 13:25
PROVIDERS: Emergency Provider Physician Assistant; PCP Nurse Practitioner Family
DX: J44.0 Chronic obstructive pulmonary disease with (acute) lower respiratory infection (principal); J22 Unspecified acute lower respiratory infection; J45.909 Unspecified asthma, uncomplicated; Z03.818 Encounter for observation for suspected exposure to other biological agents ruled out
CPT/HCPCS: 93005; 99283; U0003; 93010; 99284

== ENCOUNTER 2021-03-03 20:28 | Emergency (ER) | payer BC, SELFPAY ==
[2021-03-03] VITALS (25 sets, daily range): BP systolic 118–130; BP diastolic 66–96; PULSE 84–90; RESP 18–20; TEMP 36.5–37; O2SAT 90–95
--- NOTE | 2021-03-03 21:15 | DI.CT_ITS ---
Exam(s) CT CHEST PE ABD PELVIS W EXAM: CT CHEST PE ABD PELVIS W CLINICAL HISTORY: Cough, Fever, SOB, N/V/D RUQ abd pain. TECHNIQUE: Imaging Protocol: Axial computed tomography images with coronal and sagittal reformatted images were created and reviewed CONTRAST MATERIAL: Intravenous: Omnipaque 350 Contrast volume:100 ml Oral: no COMPARISON: CT CHEST ABD PELVIS WITH CONTRAST from 07/09/2016 FINDINGS: CHEST: Tracheobronchial tree: Patent where visualized. Mediastinum and Veronique: No dominant adenopathy or fluid collection. Pulmonary parenchyma: No consolidation or dominant measurable mass. Dependent changes. Pleura: No effusion or pneumothorax. Lymph nodes: Within normal limits. Aorta: Thoracic portion non-dilated. Heart: Mild coronary artery calcifications. Normal heart size. Bones: Unremarkable for age. No lytic or blastic lesions. ABDOMEN: Liver: Mild fatty infiltration.. No measurable mass. Gallbladder and biliary tract: No radiodense calculus or dilation. Pancreas: Normal density, no abnormal calcifications or inflammatory process. Spleen: Normal. Kidneys: Normal size, contour and axis. No radiodense stones or obstructive uropathy. No masses seen. Adrenal glands: No masses seen. Aorta: Abdominal portion non-dilated. Mild atherosclerotic changes. Lymph nodes: Within normal limits. Soft tissues: Soft tissues: Small fatty containing umbilical hernia. Stomach: Small hiatal hernia. PELVIS: Bladder: Symmetric distention, no gross wall thickening. Bowel: Mild diverticulosis. No evidence of diverticulitis. No obstruction or bowel wall thickening. Peritoneal cavity: No ascites, collection or mesenteric inflammatory response. Bones: Bilateral L5 pars defects and stable L5-S1 spondylolisthesis. Degenerative disc changes at L4 -5 and L5-S1. Unremarkable for age.. Reproductive organs: Within normal limits. Small amount of fat in both inguinal canals. IMPRESSION: No acute abnormality in the chest abdomen or pelvis.. RADIATION DOSE DELIVERED: 1,919.87mGy.cm Total DLP DATA REPOSITORY: All CT scans at this facility are submitted to the National Radiology Data Registry (NRDR) Dose Index Registry (DIR) with the [employer] (A[employer]). RADIATION OPTIMIZATION: All CT scans at this facility use at least one of these dose optimization te chniques: automated exposure control; mA and/or kV adjustment per patient size (includes targeted exa ms where dose is matched to clinical indication); or iterative reconstruction.
--- NOTE | 2021-03-03 21:26 | W.ED.GENAD ---
Discharge Plan Disposition Patient Disposition: HOME Condition: Stable Discharge Details Clinical Impression: COVID-19 Primary Care Provider: Annalisa Connor ED Provider: Sandi Melgar Home Meds and New Rx's Prescriptions: Continued valsartan 80 mg tablet 80 mg PO DAILY Qty: 90 RF: 4 chlorthalidone 25 mg tablet 25 mg PO DAILY Qty: 90 RF: 4 albuterol sulfate [ProAir HFA] 90 mcg/actuation HFA aerosol inhaler 2 puff Inhalation Q4H PRN 30 Days Qty: 2 RF: 11 omeprazole 20 MG capsule,delayed release(DR/EC) 20 mg PO DAILY RF: 0 sildenafil 50 mg tablet 50 mg PO DAILY PRN (Reason: sexual activity) Qty: 30 RF: 5 celecoxib 200 mg capsule 200 mg PO BID Qty: 60 RF: 2 Discharge Instructions Instructions: Viral Syndrome (ED), COVID-19 (Coronavirus Disease 2019) (ED) Additional Instructions: Take a multivitamin including vitamin C, zinc, vitamin D3. Use albuterol inhaler 1 to 2 puffs every 4 6 hours as needed for shortness of breath and wheezing. You were offered monoclonal antibody treatment at this time, please discuss this further with your PCP. The antibodies must be given within 10 days. Follow up with primary care provider in 3-5 days. Return to ED sooner if any worsening or concerns. Increase oral fluids. Return for oxygen saturation less than 90% on room air. Return for any worsening chest pain, shortness of breath or concerns. Please consider vaccination and have your family be tested frequently. Please practice quarantine for the next 14 days. Stand Alone Forms: POSITIVE COVID-19/TO BE TESTED, Work Release Referrals: Annalisa Connor, [employer] [Primary Care Provider] - 3 days Medical Decision Making 55-year-old male presents to the ER with chief complaint of fever, cough, body aches and chills since Thursday. Patient reports productive cough associated with the beforementioned including nausea vomiting diarrhea which began today. Also associated with some right upper quadrant abdominal pain. He reports he has been unable to keep anything down today. He is not vaccinated for Covid. He reports that he works for [employer] and there was a coworker that has been out sick for Covid. He denies any recent travel or any other sick contact. He did take 800 mg ibuprofen prior to arrival. He denies any chest pain. Past medical history includes hypertension, hyperlipidemia, GERD, obesity, mild intermittent asthma and pre-diabetes. At this time work-up ordered including CBC, CMP, Covid swab, flu swab ordered by nurse staff industrial, CT chest abdomen pelvis rule out pneumonia versus cholecystitis due to right upper quadrant abdominal pain with palpation. Nausea vomiting diarrhea. Albuterol inhaler ordered dexamethasone 6 mg IV. Flu negative. CBC shows no evidence for leukocytosis, sodium 139, potassium 2.9 BUN 20, creatinine 0.8 GFR greater than 60. Covid is positive. Potassium 40 mEq p.o. ordered Zofran 4 mg IV. 2309: Spoke with patient regarding Covid positive status and low potassium I did offer monoclonal antibodies patient is a candidate due to not requiring oxygen, history of asthma, obesity, hypertension hyperlipidemia and prediabetes. Patient declined MAB treatment at this time. He wishes to discuss this further with his PCP and family prior to agreeing to treatment. I did discuss quarantine practices and to get his family tested and or consider vaccination he verbalizes understanding. I did discuss home care with him he states that he does have a pulse oximeter at home. I discussed taking vitamin C and zinc. 1242: V rad report of CT chest abdomen pelvis is negative for PE, lung infiltrates or pleural effusion. CT abdomen pelvis showed no acute findings in the abdomen or pelvis no bowel obstruction or edema. Mild fatty liver change and degenerative lumbar spinal disease. Patient discharged home in hemodynamically stable condition. Lab Data Lab results reviewed: Yes I reviewed the patient's lab results. HPI General Mode of arrival: ambulatory. Date/Time Provider Initiated Documentation: 03/03/21 20:30. Limitations to Documentation: no limitations. Information obtained by: patient, RN notes reviewed and old records reviewed. HPI Narrative: 55-year-old male presents to the ER with chief complaint of fever, cough, body aches and chills since Thursday. Patient reports productive cough associated with the beforementioned including nausea vomiting diarrhea which began today. Also associated with some right upper quadrant abdominal pain. He reports he has been unable to keep anything down today. He is not vaccinated for Covid. He reports that he works for [employer] and there was a coworker that has been out sick for Covid. He denies any recent travel or any other sick contact. He did take 800 mg ibuprofen prior to arrival. He denies any chest pain. Past medical history includes hypertension, hyperlipidemia, GERD, obesity, mild intermittent asthma and pre-diabetes. Related Data Home Medications Medication Instructions Recorded Confirmed omeprazole 20 mg PO DAILY tab-cap 09/16/12 03/03/21 albuterol sulfate 90 mcg/actuation 2 puff INHALATION Q4H PRN 30 Days 10/19/19 03/03/21 aerosol inhaler #2 inhaler sildenafil 50 mg tablet 50 mg PO DAILY PRN #30 tab 02/02/20 03/03/21 chlorthalidone 25 mg tablet 25 mg PO DAILY #90 tab 11/06/20 03/03/21 valsartan 80 mg tablet 80 mg PO DAILY #90 tab 11/06/20 03/03/21 celecoxib 200 mg capsule 200 mg PO BID #60 cap 02/01/21 03/03/21 Previous Rx's Medication Instructions Recorded albuterol sulfate 90 mcg/actuation 2 puff INHALATION Q4H PRN 30 Days 10/19/19 aerosol inhaler #2 inhaler sildenafil 50 mg tablet 50 mg PO DAILY PRN #30 tab 02/02/20 chlorthalidone 25 mg tablet 25 mg PO DAILY #90 tab 11/06/20 valsartan 80 mg tablet 80 mg PO DAILY #90 tab 11/06/20 celecoxib 200 mg capsule 200 mg PO BID #60 cap 02/01/21 Allergies Allergy/AdvReac Type Severity Reaction Status Date / Time prochlorperazine edisylate AdvReac Severe anxiety Verified 03/03/21 20:40 [From Compazine] prochlorperazine maleate AdvReac Severe anxiety Verified 03/03/21 20:40 [From Compazine] General Stated Complaint: RespSymp DANIELA: 3 Review of Systems All systems reviewed & are unremarkable except as noted in HPI and below Constitutional Constitutional: Reports as per HPI, Reports body ache(s), Reports chills, Reports fatigue, Reports fever(s), Reports lethargy and Reports poor appetite Eyes Eyes: Denies loss of vision ENT Ears, Nose, Mouth, and Throat: Denies dizziness, Denies hoarseness, Reports nasal congestion, Denies sore throat and Denies tongue swelling Cardiovascular Cardiovascular: Denies chest pain, Denies pedal edema, Denies claudication, Denies leg edema and Reports dyspnea Respiratory Respiratory: Reports as per HPI, Reports cough, Denies hemoptysis, Reports pain with cough, Reports dyspnea, Denies stridor and Denies wheezing Gastrointestinal Gastrointestinal: Reports abdominal pain, Denies melena, Denies hematochezia, Reports diarrhea, Reports nausea and Reports vomiting Genitourinary Genitourinary: Denies difficulty urinating and Denies dysuria Musculoskeletal Musculoskeletal: Denies numbness Neurologic Neurologic: Reports as per HPI, Denies confusion, Denies dizziness, Denies localized weakness, Denies loss of vision and Denies numbness Psychiatric Psychiatric: Denies confusion Endocrine Endocrine: Reports fatigue Allergic/Immunologic Allergic/Immunologic: Denies tongue swelling and Denies wheezing [facility] Active Problem List MCL sprain of left knee (Acute 06/08/20) Essential hypertension (Chronic) Hyperlipidemia (Chronic) Prediabetes (Chronic) Osteoarthritis (Chronic) Mild intermittent asthma (Chronic) GERD (gastroesophageal reflux disease) (Chronic) Erectile dysfunction (Chronic) Obesity (Chronic) Surgical History History of ankle surgery Left Family History Mother Depression Heart disease Asthma Lung cancer Father Diabetes Stroke Sister Bipolar disorder Sister Depression Brother Bipolar disorder Maternal Grandfather No problems noted. Maternal Grandmother Heart disease Paternal Grandfather No problems noted. Paternal Grandmother No problems noted. Social History Smoking/Tobacco Use Status: Never Smoking risk assessment performed?: Yes Alcohol Intake: current Alcohol Intake frequency: holidays/special occasions only Drug use: Never Substance use type: does not use Do you feel safe at home: Yes Do you feel safe in your relationship?: Yes Exam Narrative Exam Narrative: Constitutional: Alert and oriented x3. Appears stated age. Obese body habitus. Head: Normocephalic, no trauma. Eyes: Pupils PERRL, Red reflex noted, EOM's intact. Eyelids symmetrical without lesions, discharge, or swelling. ENT: Bilateral TM's WNL, External ear normal to inspection, no mastoid TTP, swelling, or erythema, Nasal turbinates WNL, no nasal discharge. Normal dentition, Posterior pharynx WNL, no exudate. Chest: RRR, Normal S1, S2, distal pulses intact. Resp: Lungs diminished to auscultation bilaterally, no wheezes, rales, or rhonchi. Abdomen: Soft, non-distended, Normoactive bowel sounds all 4 quads. RUQ abd pain with palpation. Musculoskeletal: Normal gait, 5/5 strength to all four extremities. Skin: No suspicious rashes or lesions. Capillary refill less than 2 sec. Neurologic: Cranial nerves II-XII intact. Alert and oriented x 3. Motor: No deficits noted. Sensory: Intact bilaterally all 4 extremities. Reflexes: DTR's intact bilaterally. Hematologic/Lymphatic: No ecchymosis, no lymphadenopathy. Course Vital Signs Vital signs: Vital Signs Temperature 36.5 C 03/03/21 20:41 Pulse 88 03/03/21 20:41 Respiratory Rate 18 03/03/21 20:41 Blood Pressure 125/80 03/03/21 20:41 Pulse Oximetry 92 03/03/21 20:41 Temperature 36.5 C 03/03/21 20:41 Temperature Source Skin 03/03/21 20:41 Pulse 88 03/03/21 20:41 Respiratory Rate 18 03/03/21 20:41 Respiratory Effort Non-Labored 03/03/21 20:43 Blood Pressure 125/80 03/03/21 20:41 Pulse Oximetry 92 03/03/21 20:41 Pain Level 6 03/03/21 20:41 Lab/Test Results Lab/Test Results: 03/03/21 20:56 Nasopharynx Influenza Types A,B Antigen - Pending Laboratory Tests Range/Units 03/03/21 20:56 COVID-19 Source NASOPHARYX
[2021-03-03] MEDS: Dexamethasone 10 MG/ML VIAL 6 MG IVP (21:42)
[2021-03-03] MEDS: Normal Saline 1,000 ML 1000 ML IV (21:42)
[2021-03-03] MEDS: Albuterol HFA 8 GM 60 PUFF INH IH (21:44)
[2021-03-03 21:52] LABS: Abs Immature Grans 0.03 10^3/uL (0.0-0.06); Absolute Basophil Count 0.05 10^3/uL (0.0-0.2); Absolute Eosinophil Count 0.07 10^3/uL (0.0-0.7); Absolute Lymphocyte Count 0.65 10^3/uL (1.2-3.4); Absolute Monocyte Count 0.87 10^3/uL (0.1-0.8); Absolute Neutrophil Count 4.69 10^3/uL (1.2-6.7); Basophils % 0.8; Eosinophils % 1.1; HCT 47.1 % (40.0-50.0); HGB 17.2 g/dL (13.5-17.5); Immature Grans % 0.5; Lymphocytes % 10.2; MCH 33.1 pg (27.0-33.0); MCHC 36.5 % (32.0-36.0); MCV 90.6 fL (80-95); MPV 8.7 fL (8.0-11.0); Monocytes % 13.7; Neutrophils % 73.7; Nucleated RBC 0 %; Platelet Count 208 10^3/uL (130-400); RDW 12.8 % (11.8-14.1); RDW-SD 42.3 fL; WBC 6.36 10^3/uL (4.4-10.8)
[2021-03-03] MEDS: Inhaler, Assist Device 1 EACH MC (21:53)
[2021-03-03 22:02] LABS: COVID-19 PCR POSITIVE (Negative)
[2021-03-03 22:07] LABS: ALT 33 U/L (16-63); AST 25 U/L (15-37); Albumin 3.6 g/dL (3.4-5.0); Alkaline Phosphatase 48 U/L (46-116); Anion Gap 10.5 mmol/L (3-11); BUN 20 mg/dL (7-18); Bilirubin, Total 0.4 mg/dL (0.2-1.0); CO2 26.5 mmol/L (21.0-32.0); CREATININE 0.8 mg/dL (0.70-1.30); Calcium 8.8 mg/dL (8.5-10.1); Chloride 102 mmol/L (98-107); Glucose 101 mg/dL (74-106); Sodium 139 mmol/L (136-145); Total Protein 7.1 g/dL (6.4-8.2)
[2021-03-03 22:09] LABS: Potassium 2.9 mmol/L (3.5-5.1)
[2021-03-03] MEDS: Ondansetron 4 MG/2 ML VIAL IVP (22:23)
[2021-03-03] MEDS: Potassium Chloride Liquid 20 MEQ PKT 40 MEQ PO (22:23)
[2021-03-03] MEDS: Normal Saline - Diluent 50 ML VIAL IV (22:26)
[2021-03-03] MEDS: Normal Saline Flush 10 ML SYR IVP (22:27)
[2021-03-03] MEDS: Omnipaque 350 MG/ML 100 ML BTL IJ (22:27)
[2021-03-03 22:29] LABS: Magnesium 1.9 mg/dL (1.8-2.4)
--- NOTE | 2021-03-03 23:31 | NUR.NOTE ---
Referral faxed to [facility] to have office call and [place] patient on MAB treatment car.Nursing Note:
--- NOTE | 2021-03-03 23:37 | DI.VRAD_ITS ---
PROCEDURE INFORMATION: Exam: CTA Chest With Contrast Exam date and time: 03/03/2021 9:26 PM Age: 55 years old Clinical indication: Nausea and vomiting; Other: Cough fever, SOB, ; patient HX: Cough, fever, SOB, n/v/d ruq abd pain; Additional info: +covid TECHNIQUE: Imaging protocol: Computed tomographic angiography of the chest with contrast. 3D rendering (Not supervised by radiologist): MIP and/or 3D reconstructed images were created by the technologist. Radiation optimization: All CT scans at this facility use at least one of these dose optimization techniques: automated exposure control; mA and/or kV adjustment per patient size (includes targeted exams where dose is matched to clinical indication); or iterative reconstruction. Contrast material: 350 OMNIPAQUE; Contrast volume: 100 ml; Contrast route: INTRAVENOUS (IV); COMPARISON: CT CHEST ABD PELVIS WITH CONTRAST 07/09/2016 2:54 AM FINDINGS: Pulmonary arteries: Pulmonary arteries well opacified. No embolism. Aorta: Thoracic aorta is normal in course and caliber. No aneurysm. No dissection. Lungs: No acute lung infiltrates or consolidation. No edema. Pleural spaces: No pleural effusions. Heart: Normal heart size. No pericardial effusion. Minor coronary artery atherosclerotic calcium of the left coronary artery. Lymph nodes: Unremarkable. No enlarged lymph nodes. Bones/joints: Unremarkable. No acute fracture. Soft tissues: Unremarkable. IMPRESSION: 1. No lung infiltrates. 2. No pleural effusion. 3. No pulmonary embolism evident. PROCEDURE INFORMATION: Exam: CT Abdomen And Pelvis With Contrast Exam date and time: 03/03/2021 9:26 PM Age: 55 years old Clinical indication: Nausea and vomiting; Other: Cough fever, SOB, ; patient HX: Cough, fever, SOB, n/v/d ruq abd pain; Additional info: +covid TECHNIQUE: Imaging protocol: Computed tomography of the abdomen and pelvis with contrast. Radiation optimization: All CT scans at this facility use at least one of these dose optimization techniques: automated exposure control; mA and/or kV adjustment per patient size (includes targeted exams where dose is matched to clinical indication); or iterative reconstruction. Contrast material: 350 OMNIPAQUE; Contrast volume: 100 ml; Contrast route: INTRAVENOUS (IV); COMPARISON: CT CHEST ABD PELVIS WITH CONTRAST 07/09/2016 2:54 AM FINDINGS: Liver: Mild fatty liver change. Gallbladder and bile ducts: The gallbladder is normal in size and shape. No stones or inflammatory changes. Pancreas: The pancreas is normal in contour and attenuation. Spleen: The spleen is normal in size, contour and attenuation. Adrenal glands: The adrenal glands are normal in size and contour bilaterally. Kidneys and ureters: The kidneys bilaterally are unremarkable. Normal enhancement. No hydronephrosis. No calculi. Stomach and bowel: Gastric morphology is unremarkable. No edema. No gastric outlet obstruction. Small hiatal hernia. No acute features.Small bowel loops are normal in course and caliber. There is no mucosal edema or bowel wall thickening. No obstructive features. Large bowel is unremarkable for acute disease. There is scattered diverticulosis without acute diverticulitis. There is formed fecal material within the colon. Appendix: A non inflamed appendix is seen. See series 12, image 71. Intraperitoneal space: No free fluid in the abdomen or pelvis. No free air. Vasculature: Atherosclerotic calcification of the aorta and common iliac arteries. No aneurysm. No significant stenosis evident. Lymph nodes: Unremarkable. No enlarged lymph nodes. Urinary bladder: Urinary bladder is unremarkable. Reproductive: Unremarkable as visualized. 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 L5 grade 2 anterolisthesis. Moderate spinal stenosis at L3-L4 and L4-L5. Soft tissues: Small fat containing umbilical hernia. No acute strangulation. IMPRESSION: 1. No acute findings of the abdomen or pelvis. 2. No bowel obstruction or edema. 3. Mild fatty liver change. 4. 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 Moderate spinal stenosis L3-L4 and L4-L5. Dictated and Authenticated by: Jose Ramos MD. Ordering:NICOLE Junior MD
[2021-03-04] VITALS: BP 127/90; PULSE 89; O2SAT 92
[2021-03-04 00:01] VITALS: O2SAT 94
[2021-03-04 00:07] VITALS: BP 127/90; PULSE 90; RESP 18; TEMP 36.9; O2SAT 91
[2021-03-04 00:10] VITALS: O2SAT 90
== END 2021-03-04 00:17 | disposition home or self-care (01) ==
PROVIDERS: Emergency Provider Registered Nurse Emergency; PCP Nurse Practitioner Family
DX: U07.1 COVID-19 (principal); R50.9 Fever, unspecified; R05.1 Acute cough; M79.10 Myalgia, unspecified site; R11.2 Nausea with vomiting, unspecified; R10.11 Right upper quadrant pain; E87.6 Hypokalemia
CPT/HCPCS: 36415; 71275; 74177; 80053; 87449; 87635; 96361; 96374; 96375; 99285; 83735; 85025; J1100; J2405; J3490

== ENCOUNTER 2021-03-04 12:48 | Outpatient (CLI) | payer BC, SELFPAY ==
[2021-03-04 13:28] VITALS: BP 131/87; PULSE 93; RESP 18; TEMP 38.1; O2SAT 94
[2021-03-04 14:13] VITALS: BP 124/86; PULSE 88; RESP 28; TEMP 33.4; O2SAT 95
[2021-03-04 14:40] VITALS: BP 116/81; PULSE 94; RESP 20; TEMP 37.8; O2SAT 93
[2021-03-04 15:09] VITALS: BP 131/83; PULSE 89; RESP 20; TEMP 38.1; O2SAT 93
[2021-03-04 15:38] VITALS: BP 121/80; PULSE 93; RESP 22; TEMP 38.3; O2SAT 93
== END 2021-03-04 12:49 | disposition home or self-care (01) ==
LOC: INF 12:49
PROVIDERS: PCP Nurse Practitioner Family; Visit Provider Family Medicine
DX: U07.1 COVID-19 (principal)
CPT/HCPCS: 96365

== ENCOUNTER 2021-03-25 10:17 | Outpatient (CLI) | payer BC, SELFPAY ==
--- NOTE | 2021-03-25 10:15 | RT.EKG_ITS ---
APPROVED REPORT Exam: Resting ECG Reason for Exam: Dizziness Patient Location: O HR:81 bpm ECG Measurements Heart Rate 81 AXIS IN 161 P 22 QRSd 90 QRS 38 QT 370 T 25 QTc 429 Conclusion Sinus rhythm...normal P axis, V-rate 60- 99
== END 2021-03-25 10:18 | disposition home or self-care (01) ==
LOC: DI.CM 10:18
PROVIDERS: PCP Nurse Practitioner Family; Visit Provider Nurse Practitioner Family
DX: R42 Dizziness and giddiness (principal)
CPT/HCPCS: 93010

== ENCOUNTER 2021-05-10 12:20 | Outpatient (REF) | payer BC, SELFPAY ==
[2021-05-10 18:51] LABS: Hemoglobin A1C 5.6 % (<5.7)
[2021-05-10 18:53] LABS: Anion Gap 10.6 mmol/L (3-11); BUN 22 mg/dL (7-18); CO2 28.4 mmol/L (21.0-32.0); Calcium 8.9 mg/dL (8.5-10.1); Calculated LDL 125 mg/dL (<100); Chloride 101 mmol/L (98-107); Cholesterol 201 mg/dL (<200); Glucose 124 mg/dL (74-106); HDL Cholesterol 48 mg/dL (40-60); Potassium 3.1 mmol/L (3.5-5.1); Sodium 140 mmol/L (136-145); Triglyceride 144 mg/dL (<150)
== END 2021-05-10 12:21 | disposition home or self-care (01) ==
LOC: LBN 12:20
PROVIDERS: PCP Nurse Practitioner Family; Visit Provider Nurse Practitioner Family
DX: R73.03 Prediabetes (principal)
CPT/HCPCS: 80048; 80061; 83036

== ENCOUNTER 2021-08-02 01:29 | Emergency (ER) | payer BC, SELFPAY ==
--- NOTE | 2021-08-02 01:30 | DI.CT_ITS ---
Exam(s) CT THORACIC SPINE WO EXAM: CT THORACIC SPINE WO CLINICAL HISTORY: focal pain C7-T2, no trauma. TECHNIQUE: Imaging Protocol: Axial computed tomography images with coronal and sagittal reformatted images were created and reviewed. CONTRAST MATERIAL: Intravenous: Omnipaque 350 Contrast volume:structured data in ml Contrast route:I V - Oral: yes / no COMPARISON: No exams were available for comparison FINDINGS: Bones: No fractures or dislocations are seen. The alignment of the spine is normal including the cerv icothoracic junction. There minimal disc osteophytes projecting anteriorly in the mid to lower thoracic region. No large d isk herniations are identified. There is no visible neural foraminal narrowing or central canal sten osis. Soft tissues: Coronary artery calcifications. Visualized lungs are clear. Aorta not dilated. No hi lar or mediastinal adenopathy. IMPRESSION: Mild degenerative disc changes in the lower thoracic spine.. RADIATION DOSE DELIVERED: 1,122.83mGy.cm Total DLP DATA REPOSITORY: All CT scans at this facility are submitted to the National Radiology Data Registry (NRDR) Dose Index Registry (DIR) with the [employer] (A[employer]). RADIATION OPTIMIZATION: All CT scans at this facility use at least one of these dose optimization te chniques: automated exposure control; mA and/or kV adjustment per patient size (includes targeted exa ms where dose is matched to clinical indication); or iterative reconstruction.
--- NOTE | 2021-08-02 01:30 | DI.CT_ITS ---
Exam(s) CT CERVICAL SPINE WO EXAM: CT CERVICAL SPINE WO CLINICAL HISTORY: focal pain C7-t2, midline tenderness, no trauma. TECHNIQUE: Imaging Protocol: Axial computed tomography images with coronal and sagittal reformatted images were created and reviewed CONTRAST MATERIAL: Noncontrast COMPARISON: No exams were available for comparison FINDINGS: Bones: No fracture or dislocations are seen. The alignment of the cervical spine is normal including the cervicovertebral junction and cervicothoracic junction. C2-3: Normal. C3-4: Normal. C4-5: Mild disc space narrowing. Anteriorly projecting osteophytes. No significant neural foraminal narrowing. No visible disc bulge. C5-6: Mild to moderate loss of disc height. Small endplate osteophytes. Minimal disc bulging. Mild right neural foraminal narrowing. C6-7: Normal. C7-T1: Normal. Soft Tissues: The soft tissues of the neck are unremarkable. No large disk herniations are identified . IMPRESSION: Degenerative disc changes C4-5 and C5-6. Mild right neural foraminal narrowing at C5-6. RADIATION DOSE DELIVERED: 524.32mGy.cm Total DLP DATA REPOSITORY: All CT scans at this facility are submitted to the National Radiology Data Registry (NRDR) Dose Index Registry (DIR) with the [employer] (ACR). RADIATION OPTIMIZATION: All CT scans at this facility use at least one of these dose optimization te chniques: automated exposure control; mA and/or kV adjustment per patient size (includes targeted exa ms where dose is matched to clinical indication); or iterative reconstruction.
[2021-08-02 01:34] VITALS: BP 149/95; PULSE 80; RESP 18; TEMP 36.7; O2SAT 95
--- NOTE | 2021-08-02 01:44 | W.ED.GENAD ---
Discharge Plan Disposition Patient Disposition: HOME Condition: Good Discharge Details Clinical Impression: Back pain Primary Care Provider: Annalisa Connor ED Provider: Burt Apodaca Home Meds and New Rx's Prescriptions: New lidocaine [Lidoderm] 1 PATCH patch 1 patch Topical Q24H Qty: 4 0RF Continued valsartan 80 mg tablet 80 mg PO DAILY Qty: 90 4RF chlorthalidone 25 mg tablet 25 mg PO DAILY Qty: 90 4RF albuterol sulfate [ProAir HFA] 90 mcg/actuation HFA aerosol inhaler 2 puff Inhalation Q4H PRN 30 Days Qty: 2 11RF Label Comments: Ran out--Needs new RX omeprazole 20 MG capsule,delayed release(DR/EC) 20 mg PO DAILY 0RF sildenafil 50 mg tablet 50 mg PO DAILY PRN (Reason: sexual activity) Qty: 30 5RF Rx Instructions: administer 30 minutes to 4 hours before activity potassium chloride 20 mEq tablet extended release 20 meq PO DAILY Qty: 90 4RF celecoxib 200 mg capsule 200 mg PO BID Qty: 60 2RF Discharge Instructions Instructions: Back Pain (ED) Additional Instructions: At this time your imaging shows no clear evidence of tumor, fracture, or other significant abnormality for your spine. I suspect that it is a component of arthritis, as well as some mild muscle spasm as well. Please take 1000 mg of Tylenol every 6 hours as needed for pain. This is the maximum dose, do not take this more than for just a few days. Please continue to take your Celebrex as well. Use the Lidoderm patches as prescribed. A prescription has been sent to your pharmacy. If your insurance does not cover the prescription you can get [id number] Lidoderm patches at a slightly reduced concentration. If you notice any worsening of your symptoms, or any new symptoms such as vomiting, diarrhea, fever, chills, shortness of breath, chest pain, numbness, weakness, or fainting , please return immediately to the emergency department for reevaluation. Please follow up with your primary care provider as soon as possible for reassessment and reevaluation. As always, it was a pleasure participating in your medical care today. Referrals: Annalisa Connor, BIMAL [Primary Care Provider] - Medical Decision Making This is a 56-year-old male with a past medical history of previous COVID, hypertension, GERD who presents today for evaluation of neck pain. Patient states that yesterday when he woke up from sleep he had a focal aching sensation present at around the C7-T2 . It is worse with moving the neck, and bending the neck. Sometimes it was improved by laying down however he states that other times that worsen the pain. He denies any associated numbness tingling or weakness in his arms legs chest back or abdomen. He denies any chest pain or shortness of breath. He denies any fever chills or any IV or illicit drug use. He denies any trauma to that area now or in the past. He denies any new activities over the last few days that were potentially aggravating to the neck. He denies any tearing or ripping sensation in the back. He denies a family history of aneurysm. He denies any lightheadedness or syncope. He did take additional Celebrex, but this did not improve his pain. No other complaint this time. No other modifying factors. Physical exam demonstrates mild midline tenderness At C7, T1 and T2. No concerning red flag 5-year illicit drug use, tearing or ripping sensation in the chest, family history of aneurysm or dissection. He has no bruits noted on exam. Peripheral pulses are equal bilaterally. Uncertain as to the cause of the patient's pain. I suspect musculoskeletal based on history, and physical exam. We will get a CT scan to evaluate for any mass noted on the vertebra, or any other significant abnormality. No neurologic deficit is present on exam. No indication for emergent MRI. We will give Toradol and Lidoderm patch, monitor closely and reassess. 6 AM Patient felt notably improved after Lidoderm patch and Toradol. Repeat exam continues to show no focal neurologic deficits. Symptoms inconsistent with ACS. Patient has no chest pain, chest tightness or heaviness, vascular asymmetry, or other abnormality of concern. Symptoms are likely musculoskeletal and arthritic in nature with the lack of trauma. CT scan was ordered and demonstrates no evidence of significant acute vertebral process. There is mild stenosis, but no significant stenosis. No evidence of mass or fracture. Patient stable. Patient will be discharged home with Lidoderm patch, and recommend continuation of NSAIDs. I did discuss with the patient that if he does have persistent pain in spite of therapy he may need further evaluation with an MRI or an outpatient basis. I have extensively reviewed the treatment plan and discharge instructions with the patient. I have addressed all patient concerns at this time. The patient was made aware of what symptoms to monitor for that would warrant a return to the emergency department. Discussed the plan with the patient, they demonstrate verbal understanding and agreement with our assessment and plan at this time. The documentation in this chart was dictated using [employer] dictation software. Please excuse any dictation errors. FINDINGS: Bones/joints: No acute fracture. Loss of cervical lordosis is presumably on a degenerative basis. Discs/Spinal canal/Neural foramina: No significant spinal canal stenosis. Moderate right foraminal stenosis at C5-C6 Lungs: Lung apices are normal. Soft tissues: Unremarkable. IMPRESSION: Moderate right foraminal stenosis at C5-C6. No significant central canal stenosis Thank you for allowing us to participate in the care of your patient. Dictated and Authenticated by: Manuelito Bryant MD 08/02/2021 5:53 AM Eastern Time ([place] & [place]) FINDINGS: Vertebrae: No acute fracture. Normal alignment. Discs/Spinal canal/Neural foramina: No significant disc protrusion. No severe spinal canal stenosis. No significant neural foraminal narrowing. Soft tissues: Unremarkable. Coronary calcifications Tiny hiatal hernia IMPRESSION: No acute findings Coronary artery disease HPI General Date/Time Provider Initiated Documentation: 08/02/21 01:32. HPI Narrative: This is a 56-year-old male with a past medical history of previous COVID, hypertension, GERD who presents today for evaluation of neck pain. Patient states that yesterday when he woke up from sleep he had a focal aching sensation present at around the C7-T2 . It is worse with moving the neck, and bending the neck. Sometimes it was improved by laying down however he states that other times that worsen the pain. He denies any associated numbness tingling or weakness in his arms legs chest back or abdomen. He denies any chest pain or shortness of breath. He denies any fever chills or any IV or illicit drug use. He denies any trauma to that area now or in the past. He denies any new activities over the last few days that were potentially aggravating to the neck. He denies any tearing or ripping sensation in the back. He denies a family history of aneurysm. He denies any lightheadedness or syncope. He did take additional Celebrex, but this did not improve his pain. No other complaint this time. No other modifying factors. Related Data Home Medications Medication Instructions Recorded Confirmed omeprazole 20 mg capsule,delayed 20 mg PO DAILY tab-cap 09/16/12 08/02/21 release albuterol sulfate 90 mcg/actuation 2 puff INHALATION Q4H PRN 30 Days 10/19/19 08/02/21 aerosol inhaler (ProAir HFA) #2 inhaler chlorthalidone 25 mg tablet 25 mg PO DAILY #90 tab 11/06/20 08/02/21 valsartan 80 mg tablet 80 mg PO DAILY #90 tab 11/06/20 08/02/21 sildenafil 50 mg tablet 50 mg PO DAILY PRN #30 tab 04/25/21 08/02/21 potassium chloride 20 mEq 20 meq PO DAILY #90 tab 05/13/21 08/02/21 tablet,extended release celecoxib 200 mg capsule 200 mg PO BID #60 cap 06/28/21 08/02/21 lidocaine 5 % topical patch 1 patch TOPICAL Q24H #4 ea 08/02/21 (Lidoderm) Previous Rx's Medication Instructions Recorded albuterol sulfate 90 mcg/actuation 2 puff INHALATION Q4H PRN 30 Days 10/19/19 aerosol inhaler (ProAir HFA) #2 inhaler chlorthalidone 25 mg tablet 25 mg PO DAILY #90 tab 11/06/20 valsartan 80 mg tablet 80 mg PO DAILY #90 tab 11/06/20 sildenafil 50 mg tablet 50 mg PO DAILY PRN #30 tab 04/25/21 potassium chloride 20 mEq 20 meq PO DAILY #90 tab 05/13/21 tablet,extended release celecoxib 200 mg capsule 200 mg PO BID #60 cap 06/28/21 lidocaine 5 % topical patch 1 patch TOPICAL Q24H #4 ea 08/02/21 (Lidoderm) Allergies Allergy/AdvReac Type Severity Reaction Status Date / Time prochlorperazine edisylate AdvReac Severe anxiety Verified 08/02/21 01:42 [From Compazine] prochlorperazine maleate AdvReac Severe anxiety Verified 08/02/21 01:42 [From Compazine] General Stated Complaint: Orthopedic DANIELA: 3 Review of Systems All systems reviewed & are unremarkable except as noted in HPI and below PFSH All Active Problems (Updated 08/02/21 @ 03:13 by Burt Apodaca DO) Back pain (Acute) Post-COVID syndrome (Chronic) Essential hypertension (Chronic) Hyperlipidemia (Chronic) Prediabetes (Chronic) Osteoarthritis (Chronic) Mild intermittent asthma (Chronic) GERD (gastroesophageal reflux disease) (Chronic) Erectile dysfunction (Chronic) Obesity (Chronic) Medical History COVID-19 (02/2021) Surgical History History of ankle surgery Left Family History Mother Depression Heart disease Asthma Lung cancer Father Diabetes Stroke Sister Bipolar disorder Sister Depression Brother Bipolar disorder Maternal Grandfather No problems noted. Maternal Grandmother Heart disease Paternal Grandfather No problems noted. Paternal Grandmother No problems noted. Social History Smoking/Tobacco Use Status: Never Smoking risk assessment performed?: Yes Alcohol Intake: current Alcohol Intake frequency: holidays/special occasions only Drug use: Never Substance use type: does not use Do you feel safe at home: Yes Do you feel safe in your relationship?: Yes Exam Narrative Exam Narrative: 1.Const: Well-nourished, Well-developed, appearing stated age 2.Eyes: PERRL, no conjunctival injection, and symmetrical lids. 3.ENT: Atraumatic external nose and ears. Moist MM. Neck: Symmetric, trachea midline, No thyromegaly. Patient demonstrates good movement of cervical neck. There is no nuchal rigidity, no nuchal tenderness. Patient is able to flex the neck without any difficulty or significant pain. Negative Kernig's and Brudzinski sign. 4.CVS: +S1/S2, No murmurs or gallops. Peripheral pulses 2+ and equal in all extremities. Brisk capillary refill in all extremities. Radial pulses are strong bilaterally. 5.RESP: Unlabored respiratory effort. Clear to auscultation bilaterally. No wheezes rales or rhonchi 6.GI: Soft, Nontender/Nondistended, No hepatosplenomegaly. No guarding or rebound. 7.MSK: Normocephalic/Atraumatic, Extremities w/o deformity or ttp No cyanosis or clubbing, Normal movement of all extremities No midline tenderness to palpation over the LS spine. Normal ROM in flexion, extension, side bend, and rotation. However all of these movements do seem to worsen the pain. +5 out of 5 strength in the lower extremities in dorsiflexion and plantarflexion, knee flexion and extension, hip flexion and extension. Normal strength for dorsiflexion and plantar flexion of the great toe bilaterally. There is +2 over 2 dorsalis pedis pulses bilaterally. There is normal sensation to the skin with light touch at the foot, knee, and hip. Normal saddle sensation. Good sensation over the deep sural nerve area bilaterally. Rectal exam deferred. Reflexes are +2 over 4 in the patellar reflex bilaterally. +5 out of 5 strength in the medial, ulnar, radial nerve distribution bilaterally in the hands as well as intact light touch sensation to these dermatomes on the hands There does appear to be focal midline tenderness over C7, T1, and T2. No paraspinal tenderness. No step-off sign. No redness. Downward pressure on the head elicited no numbness or tingling, and no worsening of pain symptoms. No bruit noted on auscultation of the carotid arteries or vertebral arteries. 8.Skin: Warm, Dry. No rashes or lesions. 9.Neuro: hand pattern marker II-XII grossly intact. Sensation grossly intact, no focal neurologic deficits. 10.Psych: (AAO) x3. Appropriate mood and affect Course Vital Signs Vital signs: Vital Signs Temperature 36.7 C 08/02/21 01:34 Pulse 80 08/02/21 01:34 Respiratory Rate 18 08/02/21 01:34 Blood Pressure 149/95 H 08/02/21 01:34 Pulse Oximetry 95 08/02/21 01:34 Temperature 36.7 C 08/02/21 01:34 Temperature Source Skin 08/02/21 01:34 Pulse 80 08/02/21 01:34 Respiratory Rate 18 08/02/21 01:34 Blood Pressure 149/95 H 08/02/21 01:34 Blood Pressure Position Sitting 08/02/21 01:34 Pulse Oximetry 95 08/02/21 01:34 Oxygen Delivery Method Room Air 08/02/21 01:34 Oxygen Flow Rate 0 08/02/21 01:34 Pain Level 7 08/02/21 01:34
[2021-08-02] MEDS: Ketorolac 30 MG/ML VIAL IM (01:56)
[2021-08-02] MEDS: Lidocaine 5% Patch 1 PATCH TP (02:09)
--- NOTE | 2021-08-02 05:53 | DI.VRAD_ITS ---
PROCEDURE INFORMATION: Exam: CT Cervical Spine Without Contrast Exam date and time: 08/02/2021 2:07 AM Age: 56 years old Clinical indication: Other: Focal pain c7-t2, midline tenderness; Additional info: Focal pain c7-t2, midline tenderness, no trauma TECHNIQUE: Imaging protocol: Computed tomography images of the cervical spine without contrast. Radiation optimization: All CT scans at this facility use at least one of these dose optimization techniques: automated exposure control; mA and/or kV adjustment per patient size (includes targeted exams where dose is matched to clinical indication); or iterative reconstruction. COMPARISON: CT CHEST PE ABD PELVIS W 03/03/2021 10:25 PM FINDINGS: Bones/joints: No acute fracture. Loss of cervical lordosis is presumably on a degenerative basis. Discs/Spinal canal/Neural foramina: No significant spinal canal stenosis. Moderate right foraminal stenosis at C5-C6 Lungs: Lung apices are normal. Soft tissues: Unremarkable. IMPRESSION: Moderate right foraminal stenosis at C5-C6. No significant central canal stenosis Dictated and Authenticated by: Manuelito Bryant MD. Ordering:ESTHELA Dallas MD
--- NOTE | 2021-08-02 05:53 | DI.VRAD_ITS ---
PROCEDURE INFORMATION: Exam: CT Thoracic Spine Without Contrast Exam date and time: 08/02/2021 2:09 AM Age: 56 years old Clinical indication: Pain in thoracic spine; Without myelpathy or radiculopathy; Additional info: Focal pain c7-t2, midline tenderness, no trauma TECHNIQUE: Imaging protocol: Computed tomography images of the thoracic spine without contrast. Radiation optimization: All CT scans at this facility use at least one of these dose optimization techniques: automated exposure control; mA and/or kV adjustment per patient size (includes targeted exams where dose is matched to clinical indication); or iterative reconstruction. COMPARISON: CT CERVICAL SPINE WO 08/02/2021 2:07 AM FINDINGS: Vertebrae: No acute fracture. Normal alignment. Discs/Spinal canal/Neural foramina: No significant disc protrusion. No severe spinal canal stenosis. No significant neural foraminal narrowing. Soft tissues: Unremarkable. Coronary calcifications Tiny hiatal hernia IMPRESSION: No acute findings Coronary artery disease Dictated and Authenticated by: Manuelito Bryant MD. Ordering:ESTHELA Dallas MD
== END 2021-08-02 03:21 | disposition home or self-care (01) ==
PROVIDERS: Emergency Provider Student in an Organized Health Care Education/Training Program; PCP Nurse Practitioner Family
DX: M54.9 Dorsalgia, unspecified (principal); M54.2 Cervicalgia
CPT/HCPCS: 96372; 99285; 72125; 72128; 99283; J1885

== ENCOUNTER 2021-10-22 08:33 | Emergency (ER) | payer BC, SELFPAY ==
[2021-10-22 08:45] VITALS: BP 144/98; PULSE 74; RESP 18; TEMP 37.1; O2SAT 95
[2021-10-22 08:50] VITALS: RESP 19
--- NOTE | 2021-10-22 09:07 | ED.GENADUL_ITS ---
Discharge Plan Disposition Patient Disposition: HOME Condition: Stable Discharge Details Clinical Impression: URI (upper respiratory infection) Primary Care Provider: Annalisa Connor ED Provider: Haily Haynes Home Meds and New Rx's Prescriptions: Continued valsartan 80 mg tablet 80 mg PO DAILY Qty: 90 4RF chlorthalidone 25 mg tablet 25 mg PO DAILY Qty: 90 4RF omeprazole 20 MG capsule,delayed release(DR/EC) 20 mg PO DAILY sildenafil 50 mg tablet 50 mg PO DAILY PRN (Reason: sexual activity) Qty: 30 5RF Rx Instructions: administer 30 minutes to 4 hours before activity potassium chloride 20 mEq tablet extended release 20 meq PO DAILY Qty: 90 4RF albuterol sulfate [ProAir HFA] 90 mcg/actuation HFA aerosol inhaler 2 puff Inhalation Q4H PRN 30 Days Qty: 2 11RF Label Comments: Ran out--Needs new RX lidocaine [Lidoderm] 1 PATCH patch 1 patch Topical Q24H Qty: 4 0RF No Action celecoxib 200 mg capsule 200 mg PO BID Qty: 60 2RF Discharge Instructions Instructions: Upper Respiratory Infection (ED) Additional Instructions: Inhaler, 2 puffs every 4-6 hours Decadron will decrease the inflammation in your lungs, 1 pill will last approximately 72 hours Tylenol and ibuprofen as needed for discomfort You may also take cough and cold medication as needed Please return should you have new or worsening complaints Isolate until results of your COVID test have returned, will likely be 3 hours, if you do not hear from us your test was likely negative Stand Alone Forms: Work Release Referrals: Annalisa Connor NP [Primary Care Provider] - Discharge Data Discharge Date/Time-TO BE ENTERED AT DEPARTURE: 10/22/21 09:25 Medical Decision Making Patient appears well given inhaler and steroids for URI covid swab pending, will isolate in interim return precautions discussed and pt expressed understanding Medical Records Medical records reviewed: Yes I reviewed the patient's medical records. HPI General Date/Time Provider Initiated Documentation: 10/22/21 08:47 . HPI Narrative: 56-year-old male complains of congestion, sore throat and cough since yesterday. Denies fever. Has numerous sick contacts. Has not taken any medications prior to arrival. Denies any significant shortness of breath or any chest pain. denies exacerbating or alleviating factors Related Data Home Medications Medication Instructions Recorded Confirmed omeprazole 20 mg capsule,delayed 20 mg PO DAILY 09/16/12 08/02/21 release chlorthalidone 25 mg tablet 25 mg PO DAILY #90 tabs 11/06/20 08/02/21 valsartan 80 mg tablet 80 mg PO DAILY #90 tabs 11/06/20 08/02/21 sildenafil 50 mg tablet 50 mg PO DAILY PRN sexual activity 04/25/21 08/02/21 #30 tabs potassium chloride 20 mEq 20 meq PO DAILY #90 tabs 05/13/21 08/02/21 tablet,extended release lidocaine 5 % topical patch 1 patch topical Q24H #4 ea 08/02/21 (Lidoderm) albuterol sulfate 90 mcg/actuation 2 puff inhalation Q4H PRN 30 days 08/20/21 aerosol inhaler (ProAir HFA) ##2 celecoxib 200 mg capsule 200 mg PO BID #60 caps 10/22/21 Previous Rx's Medication Instructions Recorded chlorthalidone 25 mg tablet 25 mg PO DAILY #90 tabs 11/06/20 valsartan 80 mg tablet 80 mg PO DAILY #90 tabs 11/06/20 sildenafil 50 mg tablet 50 mg PO DAILY PRN sexual activity 04/25/21 #30 tabs potassium chloride 20 mEq 20 meq PO DAILY #90 tabs 05/13/21 tablet,extended release lidocaine 5 % topical patch 1 patch topical Q24H #4 ea 08/02/21 (Lidoderm) albuterol sulfate 90 mcg/actuation 2 puff inhalation Q4H PRN 30 days 08/20/21 aerosol inhaler (ProAir HFA) ##2 celecoxib 200 mg capsule 200 mg PO BID #60 caps 10/22/21 Allergies Allergy/AdvReac Type Severity Reaction Status Date / Time prochlorperazine edisylate AdvReac Severe anxiety Verified 08/02/21 01:42 [From Compazine] prochlorperazine maleate AdvReac Severe anxiety Verified 08/02/21 01:42 [From Compazine] General Stated Complaint: GenMedical DANIELA: 3 Review of Systems All systems reviewed & are unremarkable except as noted in HPI and below PFSH All Active Problems (Updated 10/22/21 @ 09:11 by NGUYEN Whittaker) URI (upper respiratory infection) (Acute) Post-COVID syndrome (Chronic) Essential hypertension (Chronic) Hyperlipidemia (Chronic) Prediabetes (Chronic) Osteoarthritis (Chronic) Mild intermittent asthma (Chronic) GERD (gastroesophageal reflux disease) (Chronic) Erectile dysfunction (Chronic) Obesity (Chronic) Medical History COVID-19 (02/2021) Surgical History History of ankle surgery Left Family History Mother Depression Heart disease Asthma Lung cancer Father Diabetes Stroke Sister Bipolar disorder Sister Depression Brother Bipolar disorder Maternal Grandfather No problems noted. Maternal Grandmother Heart disease Paternal Grandfather No problems noted. Paternal Grandmother No problems noted. Social History Smoking/Tobacco Use Status: Never Smoking risk assessment performed?: Yes Alcohol Intake: current Alcohol Intake frequency: holidays/special occasions only Drug use: Never Substance use type: does not use Do you feel safe at home: Yes Do you feel safe in your relationship?: Yes Exam Const General: cooperative, comfortable and no acute distress Eyes Sclera: sclerae normal Resp Effort & Inspection: normal respiratory effort Auscultation: clear to auscultation bilaterally Cardio Rate: regular rate Rhythm: regular rhythm GI Inspection: normal to inspection Auscultation: normal bowel sounds Skin General skin exam: no rashes or lesions noted Neuro General: patient alert Extrem Other: no calf swelling or tenderness Course Vital Signs Vital signs: Vital Signs Temperature 37.1 C 10/22/21 08:45 Pulse 74 10/22/21 08:45 Respiratory Rate 18 10/22/21 08:45 Blood Pressure 144/98 H 10/22/21 08:45 Pulse Oximetry 95 10/22/21 08:45 Temperature 37.1 C 10/22/21 08:45 Temperature Source Temporal Artery Scan 10/22/21 08:45 Pulse 74 10/22/21 08:45 Respiratory Rate 19 10/22/21 08:50 Respiratory Effort 10/22/21 08:50 Respiratory Depth Normal 10/22/21 08:50 Respiratory Pattern Normal 10/22/21 08:50 Blood Pressure 144/98 H 10/22/21 08:45 Blood Pressure Position Sitting 10/22/21 08:45 Pulse Oximetry 95 10/22/21 08:45 Oxygen Delivery Method Room Air 10/22/21 08:45 Oxygen Flow Rate 0 10/22/21 08:45 PAWSS Have you Been Recently Intoxicated or Drunk Within the Last 30 days?: No Have you Ever Experienced Previous Episodes of Alcohol Withdrawal?: No Have you ever Experienced Withdrawal Seizures?: No Have you ever Experienced Delirium Tremens(DT)s?: No Have you ever undergone Alcohol Rehabilitation Treatment (i.e, inpt ot outpatient treatment programs)?: No Have you ever Experienced Blackouts?: No Have you ever Combined Alcohol with other Downers within the last 90 days?: No Have you ever Combined Alcohol with any other Substance of Abuse during the last 90 days?: No Positive Blood Alcohol level on Presentation? [PCS.BAL]: No Evidence of Increased Autonomic Activity (i.e. HR>120, tremor, sweating, agitation, nausea)?: No Result: 0
[2021-10-22 09:12] LABS: Source Nasal/Nares
[2021-10-22] MEDS: Albuterol HFA 8 GM 60 PUFF INH IH (09:23)
[2021-10-22] MEDS: Dexamethasone 10 MG/ML VIAL PO (09:24)
[2021-10-22] MEDS: Inhaler, Assist Device 1 EACH MC (09:24)
[2021-10-22 10:02] LABS: COVID-19 PCR Negative (Negative)
== END 2021-10-22 09:25 | disposition home or self-care (01) ==
PROVIDERS: Emergency Provider Physician Assistant; PCP Nurse Practitioner Family
DX: J06.9 Acute upper respiratory infection, unspecified (principal); Z20.822 Contact with and (suspected) exposure to COVID-19; Z86.16 Personal history of COVID-19
CPT/HCPCS: 87635; 87880; 94640; 99283; 87081; 99284; J1100

== ENCOUNTER 2021-10-24 00:52 | Emergency (ER) | payer BC, SELFPAY ==
--- NOTE | 2021-10-24 01:00 | DI.RAD_ITS ---
Exam(s) XR CHEST 2V PA LATERAL EXAM: XR CHEST 2V PA LATERAL CLINICAL HISTORY: cough, asthma TECHNIQUE: 2D digital imaging was performed of the chest. Two images were obtained. PA and lateral views were obtained. COMPARISON: CR XR CHEST 2V PA LATERAL from 12/25/2019 FINDINGS: MEDIASTINUM: Normal. HEART: Normal. PULMONARY VASCULATURE: Normal. LUNGS: No focal consolidating infiltrates. PLEURAL SPACE: No pleural effusion or pneumothorax. BONE:Within normal limits for the patient's age. OTHER FINDINGS:Normal. IMPRESSION: No acute pulmonary findings. DATA REPOSITORY: RADIATION DOSE DELIVERED:
--- NOTE | 2021-10-24 01:13 | ED.GENADUL_ITS ---
Discharge Plan Disposition Patient Disposition: HOME Condition: Improving Discharge Details Clinical Impression: Acute bronchitis with bronchospasm Primary Care Provider: Annalisa Connor ED Provider: Nader Sims Home Meds and New Rx's Prescriptions: New azithromycin 250 mg tablet 250 mg PO DAILY 4 Days Qty: 4 0RF Rx Instructions: start on day 2 of therapy prednisone 50 mg tablet 50 mg PO DAILY 5 Days Qty: 5 0RF Continued valsartan 80 mg tablet 80 mg PO DAILY Qty: 90 4RF chlorthalidone 25 mg tablet 25 mg PO DAILY Qty: 90 4RF omeprazole 20 MG capsule,delayed release(DR/EC) 20 mg PO DAILY sildenafil 50 mg tablet 50 mg PO DAILY PRN (Reason: sexual activity) Qty: 30 5RF Rx Instructions: administer 30 minutes to 4 hours before activity potassium chloride 20 mEq tablet extended release 20 meq PO DAILY Qty: 90 4RF albuterol sulfate [ProAir HFA] 90 mcg/actuation HFA aerosol inhaler 2 puff Inhalation Q4H PRN 30 Days Qty: 2 11RF Label Comments: Ran out--Needs new RX celecoxib 200 mg capsule 200 mg PO BID Qty: 60 2RF lidocaine [Lidoderm] 1 PATCH patch 1 patch Topical Q24H Qty: 4 0RF Discharge Instructions Instructions: Asthma (ED), Acute Bronchitis (ED) Additional Instructions: Home to rest this evening. Take prednisone as prescribed once daily until finished. Return to the ER for any acute concerns. Stand Alone Forms: Work Release Medical Decision Making 56-year-old male with a history of reactive airway disease presents with few days of worsening difficulty breathing. He had initially been seen on October 22, treated with dexamethasone x1 and sent home with a albuterol inhaler. States he had some initial improvement but now with ongoing wheeze. He has not had a fever or production of colored sputum. He had a negative COVID PCR test on October 22. He is afebrile and oxygenating normally. He has mild and expiratory wheezes throughout both lung guardado on exam. Differential diagnosis includes persistent asthma exacerbation, bronchitis, pneumonia. Patient had chest x-ray performed, given oral steroids and DuoNeb updraft. Given that he had a negative COVID test on October 22, this was not repeated. Chest x-ray NAD. Patient improved with DuoNeb updraft and oral steroids. I will place him on a burst of prednisone. Azithromycin for bronchitis. He is stable and appropriate for discharge at this time. HPI General Mode of arrival: ambulatory . Date/Time Provider Initiated Documentation: 10/24/21 00:56 . Limitations to Documentation: no limitations . Information obtained by: patient . History of Present Illness 56 year old M presents to the emergency department with the chief complaint of Shortness of breath, described as moderate and similar to prior episodes, and is localized to the chest. Patient reports no radiation. Patient started experiencing this day(s) and it has been intermittent. Rest improves symptom(s), Patient notes cough and shortness of breath; denies chest pain, fever/chills and syncope. Patient did receive the following treatments prior to arrival, other Related Data Home Medications Medication Instructions Recorded Confirmed omeprazole 20 mg capsule,delayed 20 mg PO DAILY 09/16/12 08/02/21 release chlorthalidone 25 mg tablet 25 mg PO DAILY #90 tabs 11/06/20 08/02/21 valsartan 80 mg tablet 80 mg PO DAILY #90 tabs 11/06/20 08/02/21 sildenafil 50 mg tablet 50 mg PO DAILY PRN sexual activity 04/25/21 08/02/21 #30 tabs potassium chloride 20 mEq 20 meq PO DAILY #90 tabs 05/13/21 08/02/21 tablet,extended release lidocaine 5 % topical patch 1 patch topical Q24H #4 ea 08/02/21 (Lidoderm) albuterol sulfate 90 mcg/actuation 2 puff inhalation Q4H PRN 30 days 08/20/21 aerosol inhaler (ProAir HFA) ##2 celecoxib 200 mg capsule 200 mg PO BID #60 caps 10/22/21 azithromycin 250 mg tablet 250 mg PO DAILY 4 days #4 tabs 10/24/21 prednisone 50 mg tablet 50 mg PO DAILY 5 days #5 tabs 10/24/21 Previous Rx's Medication Instructions Recorded chlorthalidone 25 mg tablet 25 mg PO DAILY #90 tabs 11/06/20 valsartan 80 mg tablet 80 mg PO DAILY #90 tabs 11/06/20 sildenafil 50 mg tablet 50 mg PO DAILY PRN sexual activity 04/25/21 #30 tabs potassium chloride 20 mEq 20 meq PO DAILY #90 tabs 05/13/21 tablet,extended release lidocaine 5 % topical patch 1 patch topical Q24H #4 ea 08/02/21 (Lidoderm) albuterol sulfate 90 mcg/actuation 2 puff inhalation Q4H PRN 30 days 08/20/21 aerosol inhaler (ProAir HFA) ##2 celecoxib 200 mg capsule 200 mg PO BID #60 caps 10/22/21 azithromycin 250 mg tablet 250 mg PO DAILY 4 days #4 tabs 10/24/21 prednisone 50 mg tablet 50 mg PO DAILY 5 days #5 tabs 10/24/21 Allergies Allergy/AdvReac Type Severity Reaction Status Date / Time prochlorperazine edisylate AdvReac Severe anxiety Verified 08/02/21 01:42 [From Compazine] prochlorperazine maleate AdvReac Severe anxiety Verified 08/02/21 01:42 [From Compazine] General DANIELA: 3 Review of Systems Narrative: Using inhaler 3-4 times a day. No fever or colored sputum. Otherwise well. 7 systems reviewed. PFSH All Active Problems (Updated 10/24/21 @ 02:37 by Nader Sims MD) URI (upper respiratory infection) (Acute) Acute bronchitis with bronchospasm (Acute) Post-COVID syndrome (Chronic) Essential hypertension (Chronic) Hyperlipidemia (Chronic) Prediabetes (Chronic) Osteoarthritis (Chronic) Mild intermittent asthma (Chronic) GERD (gastroesophageal reflux disease) (Chronic) Erectile dysfunction (Chronic) Obesity (Chronic) Medical History COVID-19 (02/2021) Surgical History History of ankle surgery Left Family History Mother Depression Heart disease Asthma Lung cancer Father Diabetes Stroke Sister Bipolar disorder Sister Depression Brother Bipolar disorder Maternal Grandfather No problems noted. Maternal Grandmother Heart disease Paternal Grandfather No problems noted. Paternal Grandmother No problems noted. Social History Smoking/Tobacco Use Status: Never Smoking risk assessment performed?: Yes Alcohol Intake: current Alcohol Intake frequency: holidays/special occasions only Drug use: Never Substance use type: does not use Do you feel safe at home: Yes Do you feel safe in your relationship?: Yes Exam Narrative Exam Narrative: GEN: awake, alert, oriented 3. Pleasant, well groomed, interactive. HEAD: Normocephalic, atraumatic ENT: Mucous membranes moist, oropharynx unremarkable, External ear exam unremarkable EYES: PERRL, EOMI NECK: Full ROM, no YOAN, no menigismus CHEST/RESP: Nontender, faint bilateral end expiratory wheeze present CARDIOVASCULAR: RRR, no murmur, rub iza. 2+ Rad pulse bilateral ABDOMEN: Soft, nontender, no mass. +Bowel sounds EXT: Full ROM, no edema, no rash Neuro: Grossly normal neurologic exam, conversant, interactive. Psych: Speech fluent, thoughts congruent, affect normal
[2021-10-24 01:15] VITALS: BP 125/91; PULSE 89; RESP 18; TEMP 36.8
[2021-10-24 01:27] VITALS: RESP 7; O2SAT 96
[2021-10-24] MEDS: Albuterol/Ipratropium 3 ML UPD VIAL UPD (01:27)
[2021-10-24] MEDS: predniSONE 20 MG TAB 60 MG PO (01:27)
[2021-10-24] MEDS: Azithromycin 250 MG TAB 500 MG PO (02:44)
[2021-10-24 02:47] VITALS: BP 129/76; PULSE 87; RESP 19; TEMP 36.8; O2SAT 95
--- NOTE | 2021-10-24 03:11 | DI.VRAD_ITS ---
PROCEDURE INFORMATION: Exam: XR Chest Exam date and time: 10/24/2021 1:41 AM Age: 56 years old Clinical indication: Cough TECHNIQUE: Imaging protocol: Radiologic exam of the chest. Views: 2 views. COMPARISON: CT CHEST PE ABD PELVIS W 03/03/2021 10:25 PM FINDINGS: Lungs: Mild chronic interstitial prominence. No consolidation. Pleural spaces: Unremarkable. No pleural effusion. No pneumothorax. Heart/Mediastinum: Unremarkable. No cardiomegaly. Bones/joints: Unremarkable. IMPRESSION: No acute findings. Dictated and Authenticated by: Manuelito Bryant MD. Ordering:THERESA Doe MD
== END 2021-10-24 02:50 | disposition home or self-care (01) ==
PROVIDERS: Emergency Provider Emergency Medicine; PCP Nurse Practitioner Family
DX: J20.9 Acute bronchitis, unspecified (principal); Z86.16 Personal history of COVID-19
CPT/HCPCS: 94640; 99283; 71046; 99284; J7512; J7620

== ENCOUNTER 2021-12-29 13:53 | Emergency (ER) | payer BC, SELFPAY ==
[2021-12-29 13:58] VITALS: BP 129/86; PULSE 91; RESP 18; TEMP 36.4; O2SAT 94
--- NOTE | 2021-12-29 14:00 | DI.RAD_ITS ---
Exam(s) XR PORTABLE CHEST AP EXAM: XR PORTABLE CHEST AP CLINICAL HISTORY: cough, r/o acute disease. TECHNIQUE: 2D digital imaging was performed. COMPARISON: CR,XR XR CHEST 2V PA LATERAL from 10/24/2021 FINDINGS: Single AP portable view. Heart size is upper normal. The mediastinum is not widened. Lungs are clear. No infiltrates nor obvious pleural effusions. IMPRESSION: No acute pulmonary findings on this single AP portable view of the chest. DATA REPOSITORY: RADIATION DOSE DELIVERED: All CT scans at this facility use at least one of these dose optimization techniques: automated exposure control; mA and/or kV adjustment per patient size (includes targeted e xams where dose is matched to clinical indication); or iterative reconstruction.
--- NOTE | 2021-12-29 14:00 | RT.EKG_ITS ---
APPROVED REPORT Exam: Resting ECG Reason for Exam: dizzy Patient Location: E HR:77 bpm ECG Measurements Heart Rate 77 AXIS SD 168 P 10 QRSd 88 QRS 15 QT 371 T 2 QTc 421 Conclusion Sinus rhythm...normal P axis, V-rate 60- 99. Sinus. Normal axis. No STEMI. I have reviewed and interpreted ECG and agree with software generated interpretation.
--- NOTE | 2021-12-29 14:36 | ED.GENADUL_ITS ---
Discharge Plan Disposition Patient Disposition: HOME Condition: Stable Discharge Details Clinical Impression: Viral URI with cough, Viral syndrome Primary Care Provider: Annalisa Connor ED Provider: Marisela Phoenix Home Meds and New Rx's Prescriptions: Continued Multiple Vitamin-Minerals Tablet 1 tab PO DAILY celecoxib 200 mg capsule 200 mg PO BID Qty: 60 2RF chlorthalidone 25 mg tablet 25 mg PO DAILY Qty: 90 4RF valsartan 80 mg tablet 80 mg PO DAILY Qty: 90 4RF omeprazole 20 MG capsule,delayed release(DR/EC) 20 mg PO DAILY sildenafil 50 mg tablet 50 mg PO DAILY PRN (Reason: sexual activity) Qty: 30 5RF Rx Instructions: administer 30 minutes to 4 hours before activity albuterol sulfate [ProAir HFA] 90 mcg/actuation HFA aerosol inhaler 2 puff Inhalation Q4H PRN 30 Days Qty: 2 11RF Label Comments: Ran out--Needs new RX Discharge Instructions Instructions: Upper Respiratory Infection (ED), Viral Syndrome (ED), Acute Cough (ED) Additional Instructions: Your EKG and chest x-ray today are reassuring and show no evidence of acute concerning or significant findings. Drink plenty of fluids and get plenty of rest. Take Tylenol as needed and directed for pain or fever. Use the albuterol inhaler as needed and directed for cough or shortness of breath. Please quarantine until your COVID test result is available and if confirmed to be negative. Follow-up with your primary care doctor in 1 week. Return to the emergency department with any worsening or new concerning symptoms. Stand Alone Forms: PENDING COVID-19 TESTING, Work Release Discharge Data Discharge Date/Time-TO BE ENTERED AT DEPARTURE: 12/29/21 16:03 Discharge Physician: Marisela Phoenix Medical Decision Making 56-year-old male with a history of obesity, hypertension, hyperlipidemia, GERD, COVID in fall 2020 who is unvaccinated for COVID presents with generalized fatigue, chills, body aches, dizziness, cough and headache since yesterday. Vitals within normal limits other than low grade elevated oral temp 99.7 on my assessment in the room. He appears generally fatigued but nontoxic. Normal ENT exam. Lungs clear bilaterally with oxygen saturation 96% on room air. Discussed with patient at length that his symptoms could be secondary to a common cold, flu, COVID, pneumonia, etc. History and presentation does not appear c/w sepsis, meningitis, PE. As he has no complaint of diarrhea or urinary symptoms do not suspect colitis or UTI. Offered to place an IV, give bolus IV fluids but patient is declining stating he would not like an IV or lab work. EKG notes a rate of 77, sinus, no STEMI nondiagnostic. Portable chest x-ray negative for pneumonia. A send out COVID test was obtained. Patient was given a DuoNeb with some relief. Patient would like to go home to sleep. Advised to follow-up with a primary care doctor for reevaluation this week. He was given an albuterol inhaler to go. He declined prescription for cough medication. He requested a work note. Advised to quarantine until COVID test result available. Usual and customary return precautions given prior to discharge. Medical Records Medical records reviewed: Yes I reviewed the patient's medical records. Imaging Data Radiologic Study: Radiologist's impression: XR Chest Exam date and time: 12/29/2021 2:27 PM Age: 56 years old Clinical indication: Cough; Additional info: Cough, R/O acute disease TECHNIQUE: Imaging protocol: Radiologic exam of the chest. Views: 1 view. COMPARISON: CR XR CHEST 2V PA LATERAL 10/24/2021 1:41 AM FINDINGS: Lungs: Unremarkable. No consolidation. Pleural spaces: Unremarkable. No pleural effusion. No pneumothorax. Heart/Mediastinum: Unremarkable. No cardiomegaly. Bones/joints: Unremarkable. IMPRESSION: No acute findings. ECG Data Attestation: I personally reviewed and interpreted this ECG (s) as follows: Interpretation: rate of 77, sinus, no stemi HPI General Mode of arrival: ambulatory . Date/Time Provider Initiated Documentation: 12/29/21 13:57 . Limitations to Documentation: no limitations . Information obtained by: patient . HPI Narrative: Patient is a 56-year-old male with a history of obesity, hypertension, hyperlipidemia, GERD who had COVID in the fall 2020 and who is unvaccinated for COVID presents with generalized fatigue, body aches, dizziness, cough and headache since yesterday. Patient is unsure of any fever. He states he has taken Robitussin but has not taken any Tylenol or ibuprofen. He states he takes Celebrex twice daily for joint pain. He states his fatigue is bothering him the most. He states his symptoms do feel similar to when he has had COVID in the past. He denies any neck pain, significant shortness of breath, vomiting or diarrhea. Related Data Home Medications Medication Instructions Recorded Confirmed omeprazole 20 mg capsule,delayed 20 mg PO DAILY 09/16/12 12/29/21 release sildenafil 50 mg tablet 50 mg PO DAILY PRN sexual activity 04/25/21 12/29/21 #30 tabs albuterol sulfate 90 mcg/actuation 2 puff inhalation Q4H PRN 30 days 08/20/21 12/29/21 aerosol inhaler (ProAir HFA) ##2 celecoxib 200 mg capsule 200 mg PO BID #60 caps 11/08/21 12/29/21 chlorthalidone 25 mg tablet 25 mg PO DAILY #90 tabs 11/08/21 12/29/21 multivitamin with minerals 1 tab PO DAILY 11/08/21 12/29/21 (Multiple Vitamin-Minerals tablet) valsartan 80 mg tablet 80 mg PO DAILY #90 tabs 11/08/21 12/29/21 Previous Rx's Medication Instructions Recorded sildenafil 50 mg tablet 50 mg PO DAILY PRN sexual activity 04/25/21 #30 tabs albuterol sulfate 90 mcg/actuation 2 puff inhalation Q4H PRN 30 days 08/20/21 aerosol inhaler (ProAir HFA) ##2 celecoxib 200 mg capsule 200 mg PO BID #60 caps 11/08/21 chlorthalidone 25 mg tablet 25 mg PO DAILY #90 tabs 11/08/21 valsartan 80 mg tablet 80 mg PO DAILY #90 tabs 11/08/21 Allergies Allergy/AdvReac Type Severity Reaction Status Date / Time prochlorperazine edisylate AdvReac Severe anxiety Verified 12/29/21 14:01 [From Compazine] prochlorperazine maleate AdvReac Severe anxiety Verified 12/29/21 14:01 [From Compazine] General Stated Complaint: GenMedical DANIELA: 3 Review of Systems All systems reviewed & are unremarkable except as noted in HPI and below Constitutional Constitutional: Reports as per HPI, Denies chills and Denies fever(s) Eyes Eyes: Denies blurry vision ENT Ears, Nose, Mouth, and Throat: Denies dizziness, Denies sore throat and Denies throat swelling Cardiovascular Cardiovascular: Denies chest pain and Denies dyspnea Respiratory Respiratory: Reports cough and Denies dyspnea Gastrointestinal Gastrointestinal: Denies abdominal pain, Denies diarrhea and Denies vomiting Genitourinary Genitourinary: Denies hematuria and Denies dysuria Musculoskeletal Musculoskeletal: Denies back pain and Denies numbness Integumentary/Breasts Skin/Breast: Denies lesions and Denies rash Neurologic Neurologic: Denies dizziness, Denies localized weakness and Denies numbness Allergic/Immunologic Allergic/Immunologic: Denies throat swelling PFSH All Active Problems (Updated 12/29/21 @ 15:47 by Marisela Phoenix DO) Viral URI with cough (Acute) Viral syndrome (Acute) Erectile dysfunction (Chronic) Medical History (Updated 12/29/21 @ 15:47 by Marisela Phoenix DO) COVID-19 (02/2021) Essential hypertension GERD (gastroesophageal reflux disease) Hyperlipidemia Mild intermittent asthma Obesity Osteoarthritis Post-COVID syndrome Prediabetes Surgical History History of ankle surgery Left Family History Mother Depression Heart disease Asthma Lung cancer Father Diabetes Stroke Sister Bipolar disorder Sister Depression Brother Bipolar disorder Maternal Grandfather No problems noted. Maternal Grandmother Heart disease Paternal Grandfather No problems noted. Paternal Grandmother No problems noted. Social History (Updated 11/11/21 @ 11:41 by Siria Busby) Smoking/Tobacco Use Status: Never Smoking risk assessment performed?: Yes Alcohol Intake: current Alcohol Intake frequency: holidays/special occasions only Alcohol type: beer Drug use: Never Substance use type: does not use Caregiver/Support person: No Household members: spouse and children Housing: house Communication Needs: None Do you need help understanding health information?: Rarely Pets and animals: Yes Pets and animals: cat(s) Sexually active: Yes Do you think of yourself as: straight/heterosexual Current gender identity: male What is your relationship status?: How often do you talk on the phone with friends or family?: three or more times per week How often do you get together with friends or relatives?: once per week How often do you attend jain or protestant services?: decline to answer Do you belong to any clubs or organized social groups?: no Panel score (0-1 are the most socially isolated patients): 2 What type of physical activity do you participate in: other Details: Mowing,yard work Duration: 30-45 minutes/day Frequency: 1-2 times per week Tracie/Congregational: No preference Do you feel safe at home: Yes Do you feel safe in your relationship?: Yes Exam Const General: cooperative and no acute distress Orientation: alert, awake and oriented x3 HENMT Head: normal to inspection Ears: hearing grossly normal bilaterally, external ears normal and TM's normal bilaterally General nose exam: external nose normal Mouth: oral mucosae normal Throat: posterior oropharynx normal Eyes General: appearance normal, both eyes and all related structures Neck Neck: normal visual inspection Resp Effort & Inspection: normal respiratory effort and able to speak in complete sentences Auscultation: clear to auscultation bilaterally Cardio Rate: regular rate Rhythm: regular rhythm GI Palpation: soft, not firm, no guarding, not rigid and nontender Skin General skin exam: no rashes or lesions noted Neuro General: patient alert, patient awake, patient oriented x3, moves all extremities and no meningeal signs Motor: muscle tone normal throughout Extrem General: normal to inspection, full ROM and no edema Psych Appearance: grossly normal Affect: normal affect Course Vital Signs Vital signs: Vital Signs Temperature 97.5 F L 12/29/21 13:58 Pulse 91 H 12/29/21 13:58 Respiratory Rate 18 12/29/21 13:58 Blood Pressure 129/86 12/29/21 13:58 Pulse Oximetry 94 12/29/21 13:58 Temperature 97.5 F L 12/29/21 13:58 Temperature Source Temporal Artery Scan 12/29/21 13:58 Pulse 91 H 12/29/21 13:58 Respiratory Rate 18 12/29/21 13:58 Respiratory Effort Non-Labored 12/29/21 14:02 Blood Pressure 129/86 12/29/21 13:58 Blood Pressure Position Sitting 12/29/21 13:58 Pulse Oximetry 94 12/29/21 13:58 Oxygen Delivery Method Room Air 12/29/21 13:58 Oxygen Flow Rate 0 12/29/21 13:58
--- NOTE | 2021-12-29 15:00 | DI.VRAD_ITS ---
PROCEDURE INFORMATION: Exam: XR Chest Exam date and time: 12/29/2021 2:27 PM Age: 56 years old Clinical indication: Cough; Additional info: Cough, R/O acute disease TECHNIQUE: Imaging protocol: Radiologic exam of the chest. Views: 1 view. COMPARISON: CR XR CHEST 2V PA LATERAL 10/24/2021 1:41 AM FINDINGS: Lungs: Unremarkable. No consolidation. Pleural spaces: Unremarkable. No pleural effusion. No pneumothorax. Heart/Mediastinum: Unremarkable. No cardiomegaly. Bones/joints: Unremarkable. IMPRESSION: No acute findings. Dictated and Authenticated by: Namrata Rm MD. Ordering:TREMAYNE Antonio MD
[2021-12-29] MEDS: Acetaminophen 500 MG TAB 1000 MG PO (15:09)
[2021-12-29] MEDS: Albuterol/Ipratropium 3 ML UPD VIAL UPD (15:11)
[2021-12-29 16:03] VITALS: RESP 18
[2021-12-31 16:09] LABS: COVID-19 RT-PCR UVMMC Result Positive (Negative)
--- NOTE | 2021-12-31 18:18 | W.ED.FU ---
Follow Up Plan: Send out covid test resulted positive today. Called pt at home to inform him of result. His had taken an at home test after he left the ED on 12/29/2021 and it resulted positive so he was aware of his positive result. He was advised to follow-up with his primary care doctor if interested in antiviral treatment or monoclonal antibody infusion.
== END 2021-12-29 16:03 | disposition home or self-care (01) ==
PROVIDERS: Emergency Provider Physician Assistant; PCP Nurse Practitioner Family
DX: U07.1 COVID-19 (principal); J06.9 Acute upper respiratory infection, unspecified; I10 Essential (primary) hypertension; J45.909 Unspecified asthma, uncomplicated; Z86.16 Personal history of COVID-19
CPT/HCPCS: 93005; 99284; U0003; 71045; 93010; 99285; J7620

== ENCOUNTER 2022-01-07 05:26 | Emergency (ER) | payer BC, SELFPAY ==
[2022-01-07] VITALS (34 sets, daily range): BP systolic 111–138; BP diastolic 74–90; PULSE 58–79; RESP 11–23; TEMP 36.7; O2SAT 89–96
--- NOTE | 2022-01-07 05:34 | ED.GENADUL_ITS ---
Discharge Plan Disposition Patient Disposition: HOME Condition: Stable Discharge Details Clinical Impression: Hypokalemia, Dehydration, Headache Primary Care Provider: Annalisa Connor ED Provider: Nader Sims Home Meds and New Rx's Prescriptions: New ondansetron 4 mg tablet,disintegrating 4 mg PO Q6H PRN (Reason: nausea and vomiting) Qty: 7 0RF Continued Multiple Vitamin-Minerals Tablet 1 tab PO DAILY celecoxib 200 mg capsule 200 mg PO BID Qty: 60 2RF chlorthalidone 25 mg tablet 25 mg PO DAILY Qty: 90 4RF valsartan 80 mg tablet 80 mg PO DAILY Qty: 90 4RF omeprazole 20 MG capsule,delayed release(DR/EC) 20 mg PO DAILY sildenafil 50 mg tablet 50 mg PO DAILY PRN (Reason: sexual activity) Qty: 30 5RF Rx Instructions: administer 30 minutes to 4 hours before activity albuterol sulfate [ProAir HFA] 90 mcg/actuation HFA aerosol inhaler 2 puff Inhalation Q4H PRN 30 Days Qty: 2 11RF Label Comments: Ran out--Needs new RX Discharge Instructions Instructions: Hypokalemia (ED), Dehydration (ED), General Headache (ED) Additional Instructions: Please increase your daily intake of potassium containing foods such as bananas, strawberries, tree nuts like almonds or cashews, dark leafy greens. Zofran as needed for nausea. Home to rest today. Continue small, frequent sips of fluids. Zachery-Sildenafil until improved. Return for any acute concerns. Stand Alone Forms: Work Release Medical Decision Making <Bridger Mcwilliams MD - Last Filed: 01/07/22 07:10> Patient presenting with dull headache associated with nausea and vomiting over the weekend in the setting of post COVID recovery. Continues to have a mild cough. He is not having fever, shortness of breath, chest pain. His vomiting at least 3 times overnight. Did try some Tylenol for the headache. Presenting now with persistent symptoms. His vital signs are normal. He looks well and has a normal neurologic exam. He does appear dehydrated. IV established and fluids started. Will check CBC and CMP. Will dose with Zofran and reevaluate. Patient's CBC is fine. Chemistries with significant hypokalemia at 2.6 with evidence of dehydration given BUN of 26 and a creatinine of 0.9. We will need to replace potassium and will do so both orally and IV. We will also give a second liter of saline. Plan signout to oncoming patient with reevaluation and disposition pending. Medical Records Medical records reviewed: Yes I reviewed the patient's medical records. Lab Data Lab results reviewed: Yes I reviewed the patient's lab results. <Nader Sims MD - Last Filed: 01/07/22 09:32> Lab Data Lab results reviewed: Yes I reviewed the patient's lab results. Lab results narrative: Received signout from Dr. Mcwilliams. Please see his note regarding details of the initial presentation, exam and plan of care. Patient improved with fluids, antiemetic and potassium replacement. Potassium rechecked at 3.2. Will offer Zofran for home. He is stable and improved. I will write him a work note through the end of the week. He is stable and appropriate for discharge. Labs: Laboratory Results - last 24 hr 01/07/22 01/07/22 01/07/22 06:19 06:19 08:57 WBC 6.07 RBC 5.19 Hgb 17.0 Hct 45.8 MCV 88 MCH 32.8 MCHC 37.1 H RDW 11.8 Plt Count 215 MPV 9.0 Immature Gran % 0.5 Neutrophils % 64.9 Lymphocytes % 23.1 Monocytes % 10.2 Eosinophils % 1.0 Basophils % 0.3 Nucleated RBC % 0.0 Absolute Neutrophils 3.94 Absolute Lymphocytes 1.40 Absolute Monocytes 0.62 Absolute Eosinophils 0.06 Absolute Basophils 0.02 Sodium 140 141 Potassium 2.6 L* 3.2 L Chloride 101 104 Carbon Dioxide 27.9 29.5 Anion Gap 11.1 H 7.5 BUN 26 H 22 H Creatinine 0.9 0.9 Est GFR (CKD-EPI 2020) 100.24 100.24 Glucose 128 H 114 H Calcium 9.1 8.7 Total Bilirubin 0.9 AST 23 ALT 37 Alkaline Phosphatase 44 L Total Protein 7.4 Albumin 3.6 HPI <Bridger Mcwilliams MD - Last Filed: 01/07/22 07:10> General Mode of arrival: ambulatory . Date/Time Provider Initiated Documentation: 01/07/22 05:28 . Limitations to Documentation: no limitations . Information obtained by: patient, RN notes reviewed and old records reviewed . HPI Narrative: Patient presents to ED with complaint of dull persistent headache, fatigue, malaise, nausea and vomiting. Patient with onset of viral URI symptoms little over 10 days ago. Tested positive for COVID 10 days ago. Did not receive Paxlovid. Still has occasional cough. No chest pain or shortness of breath. No abdominal pain. Occasional diarrhea. Tonight he has been up most the night with headache, nausea and vomiting. Related Data Home Medications Medication Instructions Recorded Confirmed omeprazole 20 mg capsule,delayed 20 mg PO DAILY 09/16/12 01/07/22 release sildenafil 50 mg tablet 50 mg PO DAILY PRN sexual activity 04/25/21 01/07/22 #30 tabs albuterol sulfate 90 mcg/actuation 2 puff inhalation Q4H PRN 30 days 08/20/21 01/07/22 aerosol inhaler (ProAir HFA) ##2 celecoxib 200 mg capsule 200 mg PO BID #60 caps 11/08/21 01/07/22 chlorthalidone 25 mg tablet 25 mg PO DAILY #90 tabs 11/08/21 01/07/22 multivitamin with minerals 1 tab PO DAILY 11/08/21 01/07/22 (Multiple Vitamin-Minerals tablet) valsartan 80 mg tablet 80 mg PO DAILY #90 tabs 11/08/21 01/07/22 ondansetron 4 mg disintegrating 4 mg PO Q6H PRN nausea and 01/07/22 tablet vomiting #7 tabs Previous Rx's Medication Instructions Recorded sildenafil 50 mg tablet 50 mg PO DAILY PRN sexual activity 04/25/21 #30 tabs albuterol sulfate 90 mcg/actuation 2 puff inhalation Q4H PRN 30 days 08/20/21 aerosol inhaler (ProAir HFA) ##2 celecoxib 200 mg capsule 200 mg PO BID #60 caps 11/08/21 chlorthalidone 25 mg tablet 25 mg PO DAILY #90 tabs 11/08/21 valsartan 80 mg tablet 80 mg PO DAILY #90 tabs 11/08/21 ondansetron 4 mg disintegrating 4 mg PO Q6H PRN nausea and 01/07/22 tablet vomiting #7 tabs Allergies Allergy/AdvReac Type Severity Reaction Status Date / Time prochlorperazine edisylate AdvReac Severe anxiety Verified 01/07/22 05:40 [From Compazine] prochlorperazine maleate AdvReac Severe anxiety Verified 01/07/22 05:40 [From Compazine] General DANIELA: 3 Review of Systems <Bridger Mcwilliams MD - Last Filed: 01/07/22 07:10> Narrative: 08/24 Review of Systems completed and is negative except as stated above in HPI (Systems reviewed: Const, Resp, CV, GI, Neuro) PFSH <Bridger Mcwilliams MD - Last Filed: 01/07/22 07:10> All Active Problems (Updated 01/07/22 @ 07:10 by Bridger Mcwilliams MD) Hypokalemia (Acute) Dehydration (Acute) Headache (Acute) Viral URI with cough (Acute) Viral syndrome (Acute) Erectile dysfunction (Chronic) Medical History COVID-19 (02/2021) Essential hypertension GERD (gastroesophageal reflux disease) Hyperlipidemia Mild intermittent asthma Obesity Osteoarthritis Post-COVID syndrome Prediabetes Surgical History History of ankle surgery Left Family History Mother Depression Heart disease Asthma Lung cancer Father Diabetes Stroke Sister Bipolar disorder Sister Depression Brother Bipolar disorder Maternal Grandfather No problems noted. Maternal Grandmother Heart disease Paternal Grandfather No problems noted. Paternal Grandmother No problems noted. Social History Smoking/Tobacco Use Status: Never Smoking risk assessment performed?: Yes Alcohol Intake: former Drug use: Never Substance use type: does not use Caregiver/Support person: No Household members: spouse and children Housing: house Communication Needs: None Do you need help understanding health information?: Rarely Pets and animals: Yes Pets and animals: cat(s) Sexually active: Yes Do you think of yourself as: straight/heterosexual Current gender identity: male What is your relationship status?: How often do you talk on the phone with friends or family?: three or more times per week How often do you get together with friends or relatives?: once per week How often do you attend denominational or muslim services?: decline to answer Do you belong to any clubs or organized social groups?: no Panel score (0-1 are the most socially isolated patients): 2 What type of physical activity do you participate in: other Details: Mowing,yard work Duration: 30-45 minutes/day Frequency: 1-2 times per week Tracie/Buddhist: No preference Do you feel safe at home: Yes Do you feel safe in your relationship?: Yes Exam <Bridger Mcwilliams MD - Last Filed: 01/07/22 07:10> Narrative Exam Narrative: Const: WDWN male in NAD. HEENT: NC/AT. Normal facial exam. Dry mucous membranes with thick saliva. Eyes: Normal conjunctiva and sclera. PERRL and EOMI Neck: Supple. Trachea midline. Lungs: Normal respiratory effort. Lungs are clear. Cor: RRR without murmur/gallop. Good radial pulses. GI: Soft. NT/ND. No guarding or rebound. Neuro: A+O x 3. Normal speech, mentation, gait. Cranial nerves II - XII grossly intact. No gross motor or sensory deficit. Ext: No C/C/E. Skin: Warm and dry without rash. Sign Out <Bridger Mcwilliams MD - Last Filed: 01/07/22 07:10> Sign Out Data: Sign Out Comment: Patient pending replacement of potassium as well as second liter of saline. Should be able to return home and continue recuperation from home. Disposition per oncoming physician. Last updated by Bridger Mcwilliams MD at 01/07/22 07:49
[2022-01-07] MEDS: Ondansetron 4 MG/2 ML VIAL IVP (06:22)
[2022-01-07] MEDS: Normal Saline 1,000 ML 1000 ML IV ×2 (06:22→07:30)
[2022-01-07 06:28] LABS: Abs Immature Grans 0.03 10^3/uL (0.0-0.06); Absolute Basophil Count 0.02 10^3/uL (0.0-0.2); Absolute Eosinophil Count 0.06 10^3/uL (0.0-0.7); Absolute Monocyte Count 0.62 10^3/uL (0.1-0.8); Absolute Neutrophil Count 3.94 10^3/uL (1.2-6.7); Basophils % 0.3; HCT 45.8 % (40.0-50.0); Immature Grans % 0.5; Lymphocytes % 23.1; MCH 32.8 pg (27.0-33.0); MCHC 37.1 % (32.0-36.0); MCV 88 fL (80-95); Monocytes % 10.2; Neutrophils % 64.9; Platelet Count 215 10^3/uL (130-400); RBC 5.19 10^6/uL (4.36-5.78); RDW 11.8 % (11.8-14.1); RDW-SD 37.8 fL; WBC 6.07 10^3/uL (4.4-10.8)
[2022-01-07 06:49] LABS: ALT 37 U/L (16-63); AST 23 U/L (15-37); Albumin 3.6 g/dL (3.4-5.0); Alkaline Phosphatase 44 U/L (46-116); Anion Gap 11.1 mmol/L (3-11); BUN 26 mg/dL (7-18); Bilirubin, Total 0.9 mg/dL (0.2-1.0); CO2 27.9 mmol/L (21.0-32.0); CREATININE 0.9 mg/dL (0.70-1.30); Calcium 9.1 mg/dL (8.5-10.1); Chloride 101 mmol/L (98-107); Estimated GFR 100.24 (mL/min/1.73m2); Glucose 128 mg/dL (74-106); Sodium 140 mmol/L (136-145); Total Protein 7.4 g/dL (6.4-8.2)
[2022-01-07 06:52] LABS: Potassium 2.6 mmol/L (3.5-5.1)
[2022-01-07 09:20] LABS: Anion Gap 7.5 mmol/L (3-11); BUN 22 mg/dL (7-18); CO2 29.5 mmol/L (21.0-32.0); CREATININE 0.9 mg/dL (0.70-1.30); Calcium 8.7 mg/dL (8.5-10.1); Chloride 104 mmol/L (98-107); Estimated GFR 100.24 (mL/min/1.73m2); Glucose 114 mg/dL (74-106); Potassium 3.2 mmol/L (3.5-5.1); Sodium 141 mmol/L (136-145)
[2022-01-07] MEDS: Ondansetron O.D.T. 4 MG TABEF, 3 TABS/BTL PO (09:42)
== END 2022-01-07 09:52 | disposition home or self-care (01) ==
PROVIDERS: Emergency Medicine; Emergency Provider Emergency Medicine; PCP Nurse Practitioner Family
DX: E87.6 Hypokalemia (principal); E86.0 Dehydration; R51.9 Headache, unspecified; J45.20 Mild intermittent asthma, uncomplicated; Z86.16 Personal history of COVID-19; Z79.51 Long term (current) use of inhaled steroids; R05.9 Cough, unspecified
CPT/HCPCS: 80048; 80053; 96361; 96365; 96366; 96375; 99284; 85025; J2405

== ENCOUNTER 2022-01-21 02:54 | Outpatient (CLI) | payer BC, SELFPAY ==
[2022-01-21 12:29] LABS: Abs Immature Grans 0.03 10^3/uL (0.0-0.06); Absolute Basophil Count 0.02 10^3/uL (0.0-0.2); Absolute Eosinophil Count 0.02 10^3/uL (0.0-0.7); Absolute Lymphocyte Count 1.64 10^3/uL (1.2-3.4); Absolute Neutrophil Count 7.33 10^3/uL (1.2-6.7); Basophils % 0.2; Eosinophils % 0.2; HCT 42.9 % (40.0-50.0); HGB 15.6 g/dL (13.5-17.5); Immature Grans % 0.3; Lymphocytes % 16.8; MCHC 36.4 % (32.0-36.0); MCV 91 fL (80-95); MPV 9.6 fL (8.0-11.0); Monocytes % 7.2; Neutrophils % 75.3; Platelet Count 220 10^3/uL (130-400); RBC 4.73 10^6/uL (4.36-5.78); RDW-SD 42.3 fL; WBC 9.74 10^3/uL (4.4-10.8)
[2022-01-21 12:34] LABS: ESR 6 mm/hr (0-20)
[2022-01-21 12:52] LABS: ALT 24 U/L (16-63); AST 14 U/L (15-37); Albumin 3.8 g/dL (3.4-5.0); Alkaline Phosphatase 45 U/L (46-116); Anion Gap 8.6 mmol/L (3-11); BUN 15 mg/dL (7-18); Bilirubin, Total 0.5 mg/dL (0.2-1.0); CO2 28.4 mmol/L (21.0-32.0); CREATININE 0.9 mg/dL (0.70-1.30); Calcium 9.2 mg/dL (8.5-10.1); Chloride 106 mmol/L (98-107); Estimated GFR 100.24 (mL/min/1.73m2); Glucose 93 mg/dL (74-106); Potassium 3.2 mmol/L (3.5-5.1); Sodium 143 mmol/L (136-145); TSH (W/Ref FT4) 0.53 uIU/mL (0.36-3.74); Total Protein 7.2 g/dL (6.4-8.2)
[2022-01-21 13:08] LABS: D-Dimer 267 ng/mlFEU (<500)
== END 2022-01-21 02:55 | disposition home or self-care (01) ==
LOC: LOS 02:54
PROVIDERS: PCP Nurse Practitioner Family; Visit Provider Nurse Practitioner Family
DX: R06.02 Shortness of breath (principal); U07.1 COVID-19
CPT/HCPCS: 36415; 80053; 85652; 84443; 85025; 85379

== ENCOUNTER 2022-01-30 11:22 | Outpatient (CLI) | payer BC, SELFPAY ==
[2022-01-30 10:53] LABS: Anion Gap 5.5 mmol/L (3-11); BUN 16 mg/dL (7-18); CO2 30.5 mmol/L (21.0-32.0); Calcium 9.3 mg/dL (8.5-10.1); Chloride 106 mmol/L (98-107); Estimated GFR 88.33 (mL/min/1.73m2); Glucose 110 mg/dL (74-106); Potassium 4.4 mmol/L (3.5-5.1); Sodium 142 mmol/L (136-145)
[2022-01-31 14:49] LABS: Adrenocorticotropic Hormone, P 17 pg/mL
== END 2022-01-30 11:23 | disposition home or self-care (01) ==
LOC: LBO 11:23
PROVIDERS: PCP Nurse Practitioner Family; Visit Provider Nurse Practitioner Family
DX: E87.6 Hypokalemia (principal); U09.9 Post COVID-19 condition, unspecified
CPT/HCPCS: 36415; 80048; 80400; 82024; 82626; 84132

== ENCOUNTER 2022-02-11 03:27 | Outpatient (CLI) | payer BC, SELFPAY ==
[2022-02-11 12:28] LABS: Potassium 3.9 mmol/L (3.5-5.1)
== END 2022-02-11 03:28 | disposition home or self-care (01) ==
LOC: LOS 03:27
PROVIDERS: PCP Nurse Practitioner Family; Visit Provider Nurse Practitioner Family
DX: E87.6 Hypokalemia (principal); U09.9 Post COVID-19 condition, unspecified
CPT/HCPCS: 36415; 82533; 84132

== ENCOUNTER 2022-06-06 00:48 | Outpatient (CLI) | payer MEDICAID, SELFPAY ==
--- NOTE | 2022-06-06 07:30 | DI.US_ITS ---
APPROVED REPORT EXAM: Comprehensive 2D, Doppler, and color-flow Echocardiogram Patient Location: Out-Patient Service Order Dispatcher: Shani Terrell RDCS (AE) Indications: s/p COVID, Chronic palpitations, Dyspnea Other Information Study Quality: Adequate Conclusion Normal left ventricular wall thickness and chamber size. Estimated ejection fraction is 55 to 60%. Wall motion is normal Normal right ventricular size and systolic function The atria are normal in size Trileaflet aortic valve without stenosis or regurgitation Normal mitral valve with trace to mild regurgitation Normal tricuspid valve with trace to mild regurgitation. Estimated right ventricular systolic pressu re is 26 mmHg Wall motion Left Ventricle The left ventricle is normal size. The left ventricular systolic function is normal. The left ventric ular ejection fraction is within the normal range. There is normal left ventricular wall thickness. T here is normal LV segmental wall motion. There is no ventricular septal defect visualized. LVEF is 58 %. Right Ventricle The right ventricle is normal size. The right ventricular systolic function is normal. The RVSP is 26 .4 mmHg. Atria The left atrium size is normal. The right atrium size is normal. The interatrial septum is intact wit h no evidence for an atrial septal defect. Aortic Valve The aortic valve is normal in structure. Aortic valve is trileaflet. There is no aortic valvular sten osis. No aortic regurgitation is present. Mitral Valve The mitral valve is normal in structure. No evidence of mitral valve stenosis. Trace to mild mitral regurgitation. Tricuspid Valve The tricuspid valve is normal in structure. There is no tricuspid valve stenosis. Trace to mild tricu spid regurgitation. Pulmonic Valve The pulmonary valve is normal in structure. There is no pulmonic valvular stenosis. There is no pulmo timbo valvular regurgitation. Great Vessels The aortic root is normal in size. The ascending aorta is normal in size. Aortic arch is normal in ca liber. IVC is normal in size and collapses >50% with inspiration. Pericardium There is no pericardial effusion. 2D Dimensions IVSD d PLAX 1.05 cm M: 0.6-1.2 LV Vol A2C d MOD 112.5 mL LVPW d PLAX 1.03 cm M: 0.6 - 1.2 LV Vol A4C d MOD 154.0 mL LVID d PLAX 5.18 cm M: 4.2 - 5.8 LA vol/ BSA A2C s A-L 19.4 mL/m2 LVDs 3.60 cm M: 2.5 - 4.0 LA vol/ BSA A4C s A-L 26.2 mL/m2 Ao Root d 3.15 cm M: 3.1 - 3.7 LA Vol/ BSA Biplane s A-L 23.7 mL/m2 RA Area A4C 10.83 cm2 LA Area A4C s MOD 20.25 cm2 RA Vol/ BSA A4C s A-L 10.7 mL/m2 LA Area A2C s MOD 16.55 cm2 Ao Asc Diam d 3.38 cm M: 2.6 - 3.4 LV EF A4C MOD 58.4 % LV EF Teichholz 56.1 % LV EF A2C MOD 58.4 % LVEF (Dwyer's) 59.18 % M: 52 - 72 LV EF Biplane MOD 59.2 % LV Volume 98.18 mL M: 62 - 150 SV 79.50 mL LV Volume Index 45.24 mL/m2 M: 34 - 74 SV Index 36.70 mL/m2 LV Vol Biplane MOD 134.3 mL FS 29.50 % M-Mode TAPSE 2.16 cm (M/F) >1.7 LV Diastology MV E' medial 0.075 (>0.07 m/s) E/A Ratio 0.8 LV E/e MED 6.50 (<14) MV E Vmax 0.49 (0.4-1.3 m/s) MV E' lateral 0.108 (>0.1 m/s) MV A Vmax 0.65 (0.4-1.3 m/s) LV E/e LAT 4.50 (<14) MV E/A Ratio 0.73 MV E/E' medial 6.52 MV E/E' lateral 4.52 Aortic Valve LVOT Area 3.59 cm2 AoV Area Vmax 3.15 cm2 LVOT Vmax 1.12 m/s AoV Area/ BSA (Vmax) 1.46 cm2/m2 LVOT Mean Viktor. 0.70 m/s JULIO Mean Viktor. 2.62 cm2 LVOT Peak Grad 5.0 mmHg JULIO Mean Viktor. Index 1.21 cm2/m2 LVOT Mean Grad 2.3 mmHg LVOT VTI 0.219 m LVOT Diam s 2.10 cm AoV Vmax 1.27 m/s Velocity Ratio 0.88 AoV Mean Viktor. 0.95 m/s AoV Peak Grad 6.5 mmHg LVOT SV 78.74 mL AoV Mean Grad 4.0 mmHg AoV VTI 0.265 m AoV Area VTI 2.97 cm2 AoV Area/ BSA (VTI) 1.37 cm/m2 Mitral Valve MV DT 361 (160-240 msec) MV PHT 105 msec MV Area PHT 2.10 cm2 MV VTI 0.208 m MV Area VTI 3.78 (4.0-6.0 cm2) Pulmonary Valve PV Vmax 1.27 (0.5-1.5 m/s) RVOT Peak Gr. 1.63 mmHg PV Peak Grad 6.4 mmHg RVOT Mean Gr. 0.85 mmHg PV Mean Grad 3.5 mmHg RVOT VTI 0.141 m PV VTI 0.250 m RVOT Vmax 0.64 m/s Tricuspid Valve TR Peak Grad 23.4 mmHg TR Vmax 2.42 m/s RA Pressure 3.00 mmHg RVSP (TR) 26.4 mmHg
== END 2022-06-06 01:08 ==
PROVIDERS: PCP Nurse Practitioner Family; Visit Provider Internal Medicine Critical Care Medicine
DX: U09.9 Post COVID-19 condition, unspecified (principal); R00.2 Palpitations; R06.09 Other forms of dyspnea
CPT/HCPCS: 93306

== ENCOUNTER 2022-12-31 16:43 | Outpatient (CLI) | payer MEDICAID, SELFPAY ==
[2023-01-01 14:52] LABS: ANA Interpretation Negative (Negative)
[2023-01-02 13:19] LABS: RNP Ab, IgG 2.9 Units (<20.0); SS-A Antibody 1.5 Units (<20.0); SS-B (La) Ab, IgG 1.9 Units (<20.0); Sm (Smith) Ab, IgG 4.1 Units (<20.0)
== END 2022-12-31 16:44 | disposition home or self-care (01) ==
PROVIDERS: Visit Provider Psychiatry & Neurology Neurology
DX: H04.123 Dry eye syndrome of bilateral lacrimal glands (principal); Z01.84 Encounter for antibody response examination
CPT/HCPCS: 36415; 86038; 86235

== ENCOUNTER 2023-01-23 05:02 | Outpatient (CLI) | payer MEDICAID, SELFPAY ==
[2023-01-23 09:17] LABS: Abs Immature Grans 0.03 10^3/uL (0.0-0.06); Absolute Basophil Count 0.07 10^3/uL (0.0-0.2); Absolute Eosinophil Count 0.06 10^3/uL (0.0-0.7); Absolute Lymphocyte Count 1.09 10^3/uL (1.2-3.4); Absolute Monocyte Count 0.62 10^3/uL (0.1-0.8); Absolute Neutrophil Count 5.74 10^3/uL (1.2-6.7); Basophils % 0.9; Eosinophils % 0.8; HCT 47.6 % (40.0-50.0); HGB 17.5 g/dL (13.5-17.5); Immature Grans % 0.4; Lymphocytes % 14.3; MCH 33.3 pg (27.0-33.0); MCHC 36.8 % (32.0-36.0); MCV 91 fL (80-95); MPV 8.8 fL (8.0-11.0); Monocytes % 8.1; Neutrophils % 75.5; Platelet Count 255 10^3/uL (130-400); RBC 5.26 10^6/uL (4.36-5.78); RDW 12.6 % (11.8-14.1); RDW-SD 41.2 fL; WBC 7.61 10^3/uL (4.4-10.8)
[2023-01-23 10:07] LABS: ALT 21 U/L (16-63); AST 14 U/L (15-37); Albumin 3.8 g/dL (3.4-5.0); Alkaline Phosphatase 62 U/L (46-116); Anion Gap 8.4 mmol/L (3-11); BUN 19 mg/dL (7-18); Bilirubin, Total 0.5 mg/dL (0.2-1.0); CO2 24.6 mmol/L (21.0-32.0); CREATININE 0.9 mg/dL (0.70-1.30); Calcium 9.2 mg/dL (8.5-10.1); Chloride 105 mmol/L (98-107); Estimated GFR 99.62 (mL/min/1.73m2); Glucose 115 mg/dL (74-106); Potassium 3.9 mmol/L (3.5-5.1); Sodium 138 mmol/L (136-145); TSH (W/Ref FT4) 1.72 uIU/mL (0.36-3.74); Total Protein 7.7 g/dL (6.4-8.2)
[2023-01-23 18:52] LABS: PSA, Screening 0.5 ng/mL (<=3.5)
== END 2023-01-23 05:03 | disposition home or self-care (01) ==
LOC: LBO 05:04
PROVIDERS: PCP Nurse Practitioner Family; Visit Provider Nurse Practitioner Family
DX: I10 Essential (primary) hypertension (principal); F32.89 Other specified depressive episodes; R73.03 Prediabetes; Z12.5 Encounter for screening for malignant neoplasm of prostate; Z00.00 Encounter for general adult medical examination without abnormal findings
CPT/HCPCS: 36415; 80053; 84153; 84443; 85025

== ENCOUNTER 2024-02-22 03:12 | Outpatient (CLI) | payer MEDICAID, SELFPAY ==
[2024-02-22 12:20] LABS: Abs Immature Grans 0.03 10^3/uL (0.0-0.06); Absolute Basophil Count 0.05 10^3/uL (0.0-0.2); Absolute Eosinophil Count 0.11 10^3/uL (0.0-0.7); Absolute Lymphocyte Count 1.15 10^3/uL (1.2-3.4); Absolute Monocyte Count 0.55 10^3/uL (0.1-0.8); Absolute Neutrophil Count 6.03 10^3/uL (1.2-6.7); Basophils % 0.6 %; Eosinophils % 1.4 %; HCT 47.3 % (40.0-50.0); HGB 16.9 g/dL (13.5-17.5); Immature Grans % 0.4 %; Lymphocytes % 14.5 %; MCH 33.1 pg (27.0-33.0); MCHC 35.7 % (32.0-36.0); MCV 93 fL (80-95); MPV 8.9 fL (8.0-11.0); Monocytes % 6.9 %; Neutrophils % 76.2 %; Platelet Count 288 10^3/uL (130-400); RBC 5.11 10^6/uL (4.36-5.78); RDW 12.8 % (11.8-14.1); RDW-SD 43.7 fL; WBC 7.92 10^3/uL (4.4-10.8)
[2024-02-22 12:35] LABS: Hemoglobin A1C 5.4 % (<5.7)
[2024-02-22 13:07] LABS: ALT 26 U/L (16-63); AST 23 U/L (15-37); Albumin 3.8 g/dL (3.4-5.0); Alkaline Phosphatase 60 U/L (46-116); Anion Gap 12.9 mmol/L (3-11); BUN 20 mg/dL (7-18); CO2 25.1 mmol/L (21.0-32.0); CREATININE 1.3 mg/dL (0.70-1.30); Calculated LDL 139 mg/dL (<100); Chloride 104 mmol/L (98-107); Cholesterol 229 mg/dL (<200); Estimated GFR 63.68 (mL/min/1.73m2); Glucose 177 mg/dL (74-106); HDL Cholesterol 43 mg/dL (40-60); Potassium 3.6 mmol/L (3.5-5.1); Sodium 142 mmol/L (136-145); TSH (W/Ref FT4) 1.17 uIU/mL (0.36-3.74); Total Protein 7.1 g/dL (6.4-8.2); Triglyceride 236 mg/dL (<150); Vitamin D 25 Total 22.8 ng/mL (30-100)
[2024-02-22 19:41] LABS: PSA, Screening 0.5 ng/mL (<=3.5)
[2024-02-22 19:47] LABS: HBs Antibody, Quant 6.8 mIU/mL (See Note); Hep B Surface Ab Negative (See Note); Hepatitis B Core Antibody Negative (Negative); Hepatitis B Surface Antigen Negative (Negative)
[2024-02-22 20:25] LABS: Hepatitis C Ab w Rflx HCV PCR Negative (Negative)
[2024-02-22 20:47] LABS: HIV-1/2 Ag & Ab Screen Negative (Negative)
[2024-02-27 09:34] LABS: Testosterone, Total 363 ng/dL (240-950)
== END 2024-02-22 03:13 | disposition home or self-care (01) ==
LOC: LOS 03:12
PROVIDERS: PCP Nurse Practitioner Family; Referring Provider Nurse Practitioner Family; Visit Provider Nurse Practitioner Family
DX: G47.00 Insomnia, unspecified (principal); G47.33 Obstructive sleep apnea (adult) (pediatric); I10 Essential (primary) hypertension; E78.5 Hyperlipidemia, unspecified; Z00.00 Encounter for general adult medical examination without abnormal findings; Z11.59 Encounter for screening for other viral diseases; Z11.4 Encounter for screening for human immunodeficiency virus [HIV]; Z12.5 Encounter for screening for malignant neoplasm of prostate
CPT/HCPCS: 36415; 80053; 80061; 82306; 84153; 84403; 86704; 86706; 86803; 87340; 87389; 83036; 84443; 85025

== ENCOUNTER 2024-07-01 17:29 | Emergency (ER) | payer MEDICAID, SELFPAY ==
[2024-07-01 17:33] VITALS: BP 162/100; PULSE 123; RESP 20; TEMP 36.9; O2SAT 98
--- NOTE | 2024-07-01 18:15 | ED.GENADUL_ITS ---
Discharge Plan Disposition Patient Disposition: Home Condition: Stable Discharge Details Clinical Impression: Bronchitis Primary Care Provider: Annalisa Connor ED Provider: Burt Huerat Home Meds and New Rx's Prescriptions: New azithromycin 250 mg tablet See Rx Instructions .ROUTE .COMPLEX Qty: 6 0RF Rx Instructions: For 250 mg dose pack: take 500 mg today (day 1), then 250 mg for 4 days (days 2-5) Continued amlodipine 5 mg tablet 5 mg PO BID Qty: 180 3RF Spiriva Respimat 1.25 mcg/actuation mist 2 puff inhalation DAILY Dulera 200-5 mcg/actuation HFA aerosol inhaler 2 puff inhalation BID Patient Comments: INHALE TWO PUFFS BY MOUTH TWICE A DAY tadalafil 5 mg tablet 5 mg PO DAILY Qty: 90 3RF vortioxetine 5 mg tablet 5 mg PO .COMPLEX MDD 15 mg Qty: 30 3RF Rx Instructions: 5 mg orally Morning; vortioxetine 10 mg tablet 10 mg PO .COMPLEX MDD 15 mg Qty: 90 3RF Rx Instructions: 10 mg orally in morning; trazodone 100 mg tablet 150 mg PO DAILY Qty: 135 3RF Rx Instructions: * 05/30/24 dose increase to 150 mg, qHS, prn* bupropion HCl 75 mg tablet 75 mg PO DAILY Qty: 30 3RF Rx Instructions: Take each morning celecoxib 200 mg capsule 200 mg PO BID PRN (Reason: pain) Qty: 90 2RF hydrochlorothiazide 25 mg tablet 25 mg PO DAILY Qty: 90 3RF omeprazole 20 mg capsule,delayed release(DR/EC) 20 mg PO DAILY Qty: 90 3RF valsartan 320 mg tablet 320 mg PO DAILY Qty: 90 3RF ondansetron 8 mg tablet,disintegrating 8 mg PO Q6H PRN (Reason: nausea and vomiting) Qty: 60 2RF Discharge Instructions Instructions: Azithromycin (Systemic), High Potassium Diet, Bronchitis, Adult ED Additional Instructions: You were seen in the emergency department for your respiratory illness of about a week, you are negative for COVID and flu and RSV, your x-ray shows no pneumonia, I am prescribing azithromycin which has some anti-inflammatory prope rties for the lungs, this is possibly a virus which would resolve anyway, please use therapeutic dosing of Tylenol (acetamenophen) & Advil (ibuprofen) in an alternating fashion as follows: Take 1000mg of Tylenol every 6 hours without missing doses- that is 4 times per day. [place] in between the Tylenol dosings, take 400-600mg of Advil also on a 6 hour schedule, that is also 4 times per day. The daily maximum dosing of Tylenol is 4000mg, and the daily maximum dosing of Advil is 2400mg. This is safe to do for weeks. Please note that some common cold medications & prescription pain medications may contain acetamenophen and you need to read OTC drug labels and factor that in to maximum daily dosings. Please return to the emergency department for any severe increase in shortness of breath, chest pain or other emergent concerns. You had mildly low potassium, please eat a high potassium diet and seek PCP follow-up for recheck Referrals: Annalisa Connor NP [Primary Care Provider] - Discharge Data Discharge Date/Time-TO BE ENTERED AT DEPARTURE: 07/01/24 20:15 HPI General Date/Time Provider Initiated Documentation: 07/01/24 17:45 . HPI Narrative: 59 year-old male presents to ED today by POV/ambulating with a chief complaint of flu-like symptoms for the past week, grandson recently diagnosed with flu and RSV simultaneously. Quality described as generalized body aches, cough, cold symptoms, low-grade fevers, fatigue, no radiation to nausea/vomiting, chest pain, shortness of breath, syncope, diarrhea. Severity is described as moderate. Palliating factors include nothing specific attempted. Provoking factors include nothing specific. Patient not anticoagulated. Related Data Home Medications ?Medication ?Instructions ?Recorded ?Confirmed mometasone-formoterol HFA 200 2 puff inhalation BID 01/07/23 05/30/24 mcg-5 mcg/actuation aerosol inhaler (Dulera) tiotropium bromide 1.25 2 puff inhalation DAILY 05/13/23 05/30/24 mcg/actuation mist for inhalation (Spiriva Respimat) celecoxib 200 mg capsule 200 mg PO BID PRN pain #90 caps 01/14/24 05/30/24 hydrochlorothiazide 25 mg tablet 25 mg PO DAILY #90 tabs 01/14/24 05/30/24 omeprazole 20 mg capsule,delayed 20 mg PO DAILY #90 tab-caps 01/14/24 05/30/24 release valsartan 320 mg tablet 320 mg PO DAILY #90 tabs 01/14/24 05/30/24 amlodipine 5 mg tablet 5 mg PO BID #180 tabs 02/19/24 05/30/24 tadalafil 5 mg tablet 5 mg PO DAILY sexual activity #90 03/18/24 05/30/24 tabs ondansetron 8 mg disintegrating 8 mg PO Q6H PRN nausea and 05/25/24 05/30/24 tablet vomiting #60 tabs bupropion HCl 75 mg tablet 75 mg PO DAILY #30 tabs 05/30/24 05/30/24 trazodone 100 mg tablet 150 mg (1.5 x 100 mg) PO DAILY 05/30/24 05/30/24 #135 tabs vortioxetine 10 mg tablet 10 mg PO .COMPLEX #90 tabs 05/30/24 05/30/24 vortioxetine 5 mg tablet 5 mg PO .COMPLEX #30 tabs 05/30/24 05/30/24 azithromycin 250 mg tablet See Rx Instructions PO .COMPLEX #6 07/01/24 tabs Previous Rx's ?Medication ?Instructions ?Recorded celecoxib 200 mg capsule 200 mg PO BID PRN pain #90 caps 01/14/24 hydrochlorothiazide 25 mg tablet 25 mg PO DAILY #90 tabs 01/14/24 omeprazole 20 mg capsule,delayed 20 mg PO DAILY #90 tab-caps 01/14/24 release valsartan 320 mg tablet 320 mg PO DAILY #90 tabs 01/14/24 amlodipine 5 mg tablet 5 mg PO BID #180 tabs 02/19/24 tadalafil 5 mg tablet 5 mg PO DAILY sexual activity #90 03/18/24 tabs ondansetron 8 mg disintegrating 8 mg PO Q6H PRN nausea and 05/25/24 tablet vomiting #60 tabs bupropion HCl 75 mg tablet 75 mg PO DAILY #30 tabs 05/30/24 trazodone 100 mg tablet 150 mg (1.5 x 100 mg) PO DAILY 05/30/24 #135 tabs vortioxetine 10 mg tablet 10 mg PO .COMPLEX #90 tabs 05/30/24 vortioxetine 5 mg tablet 5 mg PO .COMPLEX #30 tabs 05/30/24 azithromycin 250 mg tablet See Rx Instructions PO .COMPLEX #6 03/21/25 tabs Allergies Allergy/AdvReac Type Severity Reaction Status Date / Time prochlorperazine edisylate AdvReac Severe anxiety Verified 03/18/24 10:35 (From Compazine) prochlorperazine maleate AdvReac Severe anxiety Verified 03/18/24 10:35 (From Compazine) General Stated Complaint: RespSymp DANIELA: 4 Review of Systems All systems reviewed & are unremarkable except as noted in HPI and below Exam Narrative Exam Narrative: GENERAL APPEARANCE: Well-nourished, non-toxic, awake and alert, atraumatic, no acute distress. SKIN: Warm, pink, dry, intact, without rashes/lesions/ulcerations. HEAD: Normocephalic, atraumatic, normal hair distribution for gender/age. EYES: Normal conjunctiva, no exudates on lids/lashes. ENT: Nares patent, no circumoral cyanosis, no facial swelling NECK: Supple, trachea midline, painless cervical ROM. LUNGS/CHEST: Lungs CTA bilaterally, non-labored respirations, normal A/P diameter, symmetrical expansion, no chest wall deformity HEART (CV/PV): Regular rate and rhythm without murmur, no peripheral edema, no JVD. ABDOMEN: Soft, non-distended, no guarding. MSK: Normal ROM, no swelling/deformity to bilateral UEs or LEs, moving all extremities without weakness, no cyanosis, spine midline without tenderness, normal curvature. NEURO: Mental Status AAOx4 - alert to person, place, time, events No facial droop, no forehead involvement. Motor: No focal weakness - strength 5/5 in bilateral UEs and LEs, proximal and distal, symmetric. Sensory: sensation intact to light touch globally. Gait normal: patient ambulated without ataxia into ED room. PSYCH: euthymic, cooperative, pleasant, appropriate speech Course Vital Signs Vital signs: Vital Signs Temperature 36.9 C 07/01/24 17:33 Pulse 123 H 07/01/24 17:33 Respiratory Rate 20 07/01/24 17:33 Blood Pressure 162/100 H 07/01/24 17:33 Pulse Oximetry 98 07/01/24 17:33 Temperature 36.9 C 07/01/24 17:33 Temperature Source Oral 07/01/24 17:33 Pulse 123 H 07/01/24 17:33 Respiratory Rate 20 07/01/24 17:33 Blood Pressure 162/100 H 07/01/24 17:33 Blood Pressure Position Sitting 07/01/24 17:33 Pulse Oximetry 98 07/01/24 17:33 Oxygen Delivery Method Room Air 07/01/24 17:33 Oxygen Flow Rate 0 07/01/24 17:33 Pain Level 0 07/01/24 17:33 Medical Decision Making This dictation utilizes [id number] dictation software and may contain unedited grammatical errors. 59 year-old male presents to ED today by POV/ambulating with a chief complaint of flu-like symptoms for the past week, grandson recently diagnosed with flu and RSV simultaneously. Quality described as generalized body aches, cough, cold symptoms, low-grade fevers, fatigue, no radiation to nausea/vomiting, chest pain, shortness of breath, syncope, diarrhea. Severity is described as moderate. Palliating factors include nothing specific attempted. Provoking factors include nothing specific. Patients' medical history: Asthma, SHARYN. Family and social history: Noncontributory. Pertinent exam findings / vital signs include lungs CTA, benign abdomen, nontoxic, no respiratory distress, mildly tachycardic on arrival which resolved. Differential / pathologies of concern include viral syndrome, bronchitis, pneumonia, COVID/flu/RSV. Diagnostic studies of: -CBC, CMP, respiratory PCR swab, chest x-ray. -CBC shows no leukocytosis, no anemia -CMP shows mild hypokalemia and treating with p.o. -Respiratory panel swab negative -Chest x-ray negative Interventions of: -Prescribing azithromycin for possible bacterial bronchitis patient's duration of illness. ED Course/Assessment/Plan: 59-year-old male presents with 1+ week of respiratory infection, he had a close exposure with his grandson who was positive for flu and RSV but he is negative for both of these, he may have an atypical pneumonia not seen on chest x-ray, it is reasonable to prescribe a 5-day course of azithromycin, I did provide him with 140 mill equivalent dose of potassium p.o. here as well as a DuoNeb and Tylenol, strict return criteria for any acute worsening despite treatment. Findings not consistent with hypoxic respiratory failure, sepsis, pneumonia. Disposition of bronchitis. Patient verbalized understanding of the plan and return to ED criteria and engaged in shared decision making. Medical Records Medical records reviewed: Yes I reviewed the patient's medical records. Imaging Data Radiologic Study: Attestation: I personally reviewed and interpreted this imaging study as follows: Imaging: X-Ray Radiologist's impression: EXAM: XR CHEST 2V PA LATERAL CLINICAL HISTORY: cough TECHNIQUE: 2D digital imaging was performed of the chest. Two images were obtained. PA and lateral views were obtained. COMPARISON: CR,XR XR PORTABLE CHEST AP from 12/29/2021 FINDINGS: MEDIASTINUM: Normal. HEART: Normal. PULMONARY VASCULATURE: Normal. LUNGS: There are no focal consolidating infiltrates. PLEURAL SPACE: No pleural effusion or pneumothorax. BONE:Within normal limits for the patient's age. OTHER FINDINGS:Normal. IMPRESSION: No focal consolidating infiltrates are present. Lab Data Lab results reviewed: Yes I reviewed the patient's lab results. Labs: Laboratory Tests Range/Units 07/01/24 07/01/24 07/01/24 17:35 18:07 18:16 WBC (4.4-10.8) 10^3/uL 3.61 L RBC (4.36-5.78) 10^6/uL 5.27 Hgb (13.5-17.5) g/dL 16.8 Hct (40.0-50.0) % 46.5 MCV (80-95) fL 88 MCH (27.0-33.0) pg 31.9 MCHC (32.0-36.0) % 36.1 H RDW (11.8-14.1) % 11.9 Plt Count (130-400) 10^3/uL 188 MPV (8.0-11.0) fL 8.5 Immature Gran % % 0.3 Neutrophils % % 63.9 Lymphocytes % % 23.0 Monocytes % % 11.9 Eosinophils % % 0.6 Basophils % % 0.3 Nucleated RBC % (0.0-0.3) % 0.0 Absolute Neutrophils (1.2-6.7) 10^3/uL 2.31 Absolute Lymphocytes (1.2-3.4) 10^3/uL 0.83 L Absolute Monocytes (0.1-0.8) 10^3/uL 0.43 Absolute Eosinophils (0.0-0.7) 10^3/uL 0.02 Absolute Basophils (0.0-0.2) 10^3/uL 0.01 Sodium (136-145) mmol/L 141 Potassium (3.5-5.1) mmol/L 3.0 L Chloride (98-107) mmol/L 103 Carbon Dioxide (21.0-32.0) mmol/L 28.4 Anion Gap (3-11) mmol/L 9.6 BUN (7-18) mg/dL 22 H Creatinine (0.70-1.30) mg/dL 1.2 Est GFR (CKD-EPI 2020) (mL/min/1.73m2) 69.66 Glucose (74-106) mg/dL 182 H Calcium (8.5-10.1) mg/dL 8.8 Total Bilirubin (0.2-1.0) mg/dL 0.5 AST (15-37) U/L 36 ALT (16-63) U/L 28 Alkaline Phosphatase (46-116) U/L 51 Total Protein (6.4-8.2) g/dL 6.7 Albumin (3.4-5.0) g/dL 3.5 COVID-19 Source Nasopharynx SARS-CoV-2 (PCR) (Negative) Negative Influenza Type A (PCR) (Negative) Negative Influenza Type B (PCR) (Negative) Negative RSV (PCR) (Negative) Negative Quality:SDOH Health Related Social Needs: Health related social needs details none PFSH All Active Problems (Updated 07/01/24 @ 19:48 by NGUYEN Alcocer) Bronchitis (Acute) Abnormal ejaculation (Acute) Difficulty urinating (Acute) Post-COVID syndrome (Chronic) Has had COVID twice, 02/2021 and Dec 2021 Asthma (Chronic) SHARYN (obstructive sleep apnea) (Chronic) PSG 2022 Major depressive disorder (Chronic) Insomnia (Chronic) Generalized anxiety disorder (Chronic) Essential hypertension (Chronic) Hyperlipidemia (Chronic) GERD (gastroesophageal reflux disease) (Chronic) Erectile dysfunction (Chronic) Osteoarthritis (Chronic) Obesity (BMI 30-39.9) (Chronic) Medical History COVID-19 (12/2021) Surgical History History of ankle surgery Left Family History Mother Depression Heart disease Asthma Lung cancer Father Diabetes Stroke Sister Bipolar disorder Sister Depression Brother Bipolar disorder Maternal Grandfather No problems noted. Maternal Grandmother Heart disease Paternal Grandfather No problems noted. Paternal Grandmother No problems noted. Social History Smoking/Tobacco Use Status: Never Smoking risk assessment performed?: Yes Alcohol Intake: current Alcohol Intake frequency: holidays/special occasions only Alcohol type: beer Drug use: Never Substance use type: does not use Caregiver/Support person: No Household members: spouse and children Housing: house Communication Needs: None Do you need help understanding health information?: Rarely Pets and animals: Yes Pets and animals: cat(s) Sexually active: Yes Do you think of yourself as: straight/heterosexual Current gender identity: male What is your relationship status?: How often do you talk on the phone with friends or family?: three or more times per week How often do you get together with friends or relatives?: once per week How often do you attend religion or faith services?: decline to answer Do you belong to any clubs or organized social groups?: no Panel score (0-1 are the most socially isolated patients): 2 What type of physical activity do you participate in: other Details: Mowing,yard work Duration: 30-45 minutes/day Frequency: 1-2 times per week Tracie/Spiritism: No preference Do you feel safe at home: Yes Do you feel safe in your relationship?: Yes
[2024-07-01 18:21] VITALS: BP 162/100; PULSE 123; RESP 20; TEMP 36.9; O2SAT 98
[2024-07-01 18:27] LABS: Abs Immature Grans 0.01 10^3/uL (0.0-0.06); Absolute Basophil Count 0.01 10^3/uL (0.0-0.2); Absolute Eosinophil Count 0.02 10^3/uL (0.0-0.7); Absolute Lymphocyte Count 0.83 10^3/uL (1.2-3.4); Absolute Monocyte Count 0.43 10^3/uL (0.1-0.8); Absolute Neutrophil Count 2.31 10^3/uL (1.2-6.7); Basophils % 0.3 %; Eosinophils % 0.6 %; HCT 46.5 % (40.0-50.0); HGB 16.8 g/dL (13.5-17.5); Immature Grans % 0.3 %; MCH 31.9 pg (27.0-33.0); MCHC 36.1 % (32.0-36.0); MCV 88 fL (80-95); MPV 8.5 fL (8.0-11.0); Monocytes % 11.9 %; Neutrophils % 63.9 %; Platelet Count 188 10^3/uL (130-400); RBC 5.27 10^6/uL (4.36-5.78); RDW 11.9 % (11.8-14.1); RDW-SD 38.7 fL; WBC 3.61 10^3/uL (4.4-10.8)
--- NOTE | 2024-07-01 18:45 | DI.RAD_ITS ---
Exam(s) XR CHEST 2V PA LATERAL EXAM: XR CHEST 2V PA LATERAL CLINICAL HISTORY: cough TECHNIQUE: 2D digital imaging was performed of the chest. Two images were obtained. PA and lateral views were obtained. COMPARISON: CR,XR XR PORTABLE CHEST AP from 12/29/2021 FINDINGS: MEDIASTINUM: Normal. HEART: Normal. PULMONARY VASCULATURE: Normal. LUNGS: There are no focal consolidating infiltrates. PLEURAL SPACE: No pleural effusion or pneumothorax. BONE:Within normal limits for the patient's age. OTHER FINDINGS:Normal. IMPRESSION: No focal consolidating infiltrates are present. DATA REPOSITORY: RADIATION DOSE DELIVERED:
[2024-07-01 19:04] LABS: COVID-19 PCR Negative (Negative); Influenza A PCR Negative (Negative); Influenza B PCR Negative (Negative); RSV PCR Negative (Negative)
[2024-07-01 19:05] LABS: Source Nasopharynx
[2024-07-01] MEDS: Acetaminophen 500 MG TAB 1000 MG PO (19:06)
[2024-07-01] MEDS: Albuterol/Ipratropium 3 ML UPD VIAL UPD (19:07)
[2024-07-01 19:15] LABS: ALT 28 U/L (16-63); AST 36 U/L (15-37); Albumin 3.5 g/dL (3.4-5.0); Alkaline Phosphatase 51 U/L (46-116); Anion Gap 9.6 mmol/L (3-11); BUN 22 mg/dL (7-18); Bilirubin, Total 0.5 mg/dL (0.2-1.0); CO2 28.4 mmol/L (21.0-32.0); CREATININE 1.2 mg/dL (0.70-1.30); Calcium 8.8 mg/dL (8.5-10.1); Chloride 103 mmol/L (98-107); Estimated GFR 69.66 (mL/min/1.73m2); Glucose 182 mg/dL (74-106); Sodium 141 mmol/L (136-145); Total Protein 6.7 g/dL (6.4-8.2)
[2024-07-01 19:59] VITALS: BP 123/102; PULSE 89; O2SAT 92
[2024-07-01] MEDS: Potassium Chloride 20 MEQ TABCR 40 MEQ PO (19:59)
[2024-07-01 20:00] VITALS: BP 123/102; PULSE 89; RESP 18; O2SAT 92
== END 2024-07-01 20:15 | disposition home or self-care (01) ==
PROVIDERS: Emergency Provider Physician Assistant; PCP Nurse Practitioner Family
DX: J40 Bronchitis, not specified as acute or chronic (principal)
CPT/HCPCS: 36415; 80053; 87637; 94640; 99284; 71046; 85025; J7620

== ENCOUNTER 2025-02-24 00:18 | Outpatient (CLI) | payer MEDICAID, SELFPAY ==
[2025-02-24 14:37] LABS: Hemoglobin A1C 5.2 % (<5.7)
[2025-02-24 14:53] LABS: Anion Gap 10.3 mmol/L (3-11); BUN 28 mg/dL (9-23); CO2 26.7 mmol/L (20.0-31.0); Calcium 8.8 mg/dL (8.3-10.6); Chloride 106 mmol/L (98-107); Cholesterol 165 mg/dL (<200); Glucose 113 mg/dL (74-106); HDL Cholesterol 39 mg/dL (>40); Potassium 4.0 mmol/L (3.5-5.1); Sodium 143 mmol/L (136-145); Vitamin B12 1566 pg/mL (211-911)
== END 2025-02-24 00:19 | disposition home or self-care (01) ==
LOC: LOS 00:19
PROVIDERS: PCP Nurse Practitioner Family; Visit Provider Nurse Practitioner Family
DX: E78.5 Hyperlipidemia, unspecified (principal); I10 Essential (primary) hypertension; K21.9 Gastro-esophageal reflux disease without esophagitis
CPT/HCPCS: 36415; 80048; 80061; 82607; 83036